=== PATIENT | female | born 1965 | race Caucasian/White ===

== ENCOUNTER 2023-11-20 09:18 | Emergency (ER) | payer OTHER, SELFPAY ==
[2023-11-20 09:26] VITALS: BP 153/83; PULSE 72; RESP 20; TEMP 36.7; O2SAT 98
[2023-11-20 09:33] VITALS: BP 153/83; PULSE 72; RESP 20; TEMP 36.7; O2SAT 98
--- NOTE | 2023-11-20 09:52 | ED.URI ---
HPI - URI/Sore Throat General Chief Complaint: Upper Respiratory Infection Stated Complaint: congestion/chest heavy/chills Time Seen by Provider: 11/20/23 09:55 Source: patient, RN notes reviewed and old records reviewed Mode of arrival: ambulatory Limitations: no limitations History of Present Illness HPI Narrative: 58-year-old female presents [facility] day history head and chest congestion. Patient reports she did have some fevers the 1st few days of illness. Patient reports that she does have some left ear pain and cough is bothersome, some productive phlegm which is green in color. Patient states she has not noticed any further fevers has had some chills intermittently Patient states she has been taking Mucinex for her symptoms and Tylenol. Patient reports that she felt better on Tuesday then worse again yesterday. MD elicited complaint: fever (Initial), cough, rhinorrhea, nasal congestion and sinus pain Onset (ago): day(s) (8) Pain scale (0-10): 5 Able to tolerate fluids by mouth: Yes Treatments prior to arrival: other (Mucinex and Tylenol) Related Data Home Medications Medication Instructions Recorded Confirmed glimepiride 2 mg tablet mg 11/20/23 pantoprazole 40 mg tablet,delayed mg PO 11/20/23 release ropinirole 2 mg tablet mg 11/20/23 sertraline 100 mg tablet mg 11/20/23 trazodone 50 mg tablet mg 11/20/23 triamterene 75 tablet 11/20/23 mg-hydrochlorothiazide 50 mg tablet Allergies Allergy/AdvReac Type Severity Reaction Status Date / Time promethazine Allergy Unknown Verified 12/28/11 13:30 Review of Systems Review of Systems: CONSTITUTIONAL: reports malaise, chills, sweats, or fever. EYES: Denies visual changes, redness, or discharge. ENT: Reports rhinorrhea, congestion, sinus pain, left otalgia and no sore throat. CARDIOVASCULAR: Denies chest pain, palpitations, or edema. RESPIRATORY: Reports cough.? Denies dyspnea. GASTROINTESTINAL: Denies abdominal pain, nausea, vomiting, diarrhea SKIN: Denies rash or itching. MUSCULOSKELETAL: Denies myalgia. NEUROLOGIC: Reports headache. All systems reviewed & are unremarkable except as noted in HPI and below PMFSH Past Medical History Medical History (Updated 02/25/24 @ 19:09 by Linda Aguilera NP) Anxiety and depression Diabetes GERD (gastroesophageal reflux disease) Hypertension Surgical History Surgical History (Updated 11/20/23 @ 10:26 by Linda Aguilera NP) Bariatric surgery status History of cholecystectomy Hx of tonsillectomy Previous section Family History Family History (Updated 04/23/16 @ 23:19 by DOCTOR UNKNOWN) Mother Family history of obesity Hypertension Cerebrovascular accident Family history of diabetes mellitus in first degree relative Family history of coronary artery disease Family history of heart disease in male family member before age 55 Father Family history of alcoholism Family history of lung disease Sibling Family history of alcoholism Social History Social History Smoking status: Never smoker Second hand tobacco smoke exposure: No Alcohol intake: never Comments At time of signature, agree with nursing past medical, surgical, social and family history. There is no relevant family history pertinent to the presenting complaint Exam Narrative: GENERAL: Well-appearing, well-nourished, and in no acute distress. HEAD: Normocephalic EYES: PERRLA, conjunctivae clear ENT: Nares clear, turbinates edematous and erythematous, clear- yellowish discharge, facial sinus pressure and headache. Mucous membranes moist. TM pearly gaming with dull light reflex bilaterally; no tragal tenderness. Oropharynx erythematous without lesions. Tonsils not present and throat without exudate, no drooling, no hoarseness, no trismus, uvula midline.post nasal drainage noted NECK: Supple. No lymphadenopathy CHEST: Clear to auscultation, breath sounds equal. No whe
== END 2023-11-20 10:18 | disposition home or self-care (01) ==
PROVIDERS: Emergency Provider Registered Nurse
DX: J01.40 Acute pansinusitis, unspecified (principal); R05.1 Acute cough; E11.9 Type 2 diabetes mellitus without complications; K21.9 Gastro-esophageal reflux disease without esophagitis; I10 Essential (primary) hypertension
CPT/HCPCS: 99213; G0463

== ENCOUNTER 2024-12-13 11:25 | Emergency (ER) | payer OTHER, SELFPAY ==
--- NOTE | ~2024-12-13 | XR_ITS ---
XR elbow RT min 3V Ordering provider: Oscar Elam MD History: . RT ELBOW PAIN,LROM,STIFFNESS,NKI,X1DAY . Comparison: None. FINDINGS: BONES: No acute fracture or dislocation. JOINT SPACES: Normal. Osteophyte Formation seen in the ulna. SOFT TISSUES: Unremarkable. No definite joint effusion. IMPRESSION: No acute osseous abnormality of the right elbow. Reviewed, dictated and finalized at location A.
[2024-12-13 11:26] VITALS: BP 164/92; PULSE 73; RESP 18; TEMP 36.8; O2SAT 98
--- NOTE | 2024-12-13 11:52 | ED_ITS ---
HPI - Extremity Injury (Upper) General Chief Complaint: Extremity Injury, Upper Stated Complaint: rt. elbow pain Time Seen by Provider: 12/13/24 11:27 Source: patient Mode of arrival: ambulatory Limitations: no limitations History of Present Illness HPI narrative: this is a 59-year-old female that has a right elbow pain radiating into her right wrist with no known injuries there is no numbness or tingling in her hands or fingers there is no redness no warmth is tender to touch and with movement and palpation otherwise no fever chills. complaint: injury to: right Onset (ago): day(s) Other Extremity Injury: Right: elbow ( Elbow pain no injuries) Other injuries: none Handedness: right Place: home Severity: moderate Severity scale (1-10): 5 Related Data Home Medications ?Medication ?Instructions ?Recorded ?Confirmed ?Last Taken ?Type glimepiride 2 mg tablet mg 11/20/23 Unknown History pantoprazole 40 mg tablet,delayed mg PO 11/20/23 Unknown History release ropinirole 2 mg tablet mg 11/20/23 Unknown History sertraline 100 mg tablet mg 11/20/23 Unknown History trazodone 50 mg tablet mg 11/20/23 Unknown History triamterene 75 tablet 11/20/23 Unknown History mg-hydrochlorothiazide 50 mg tablet Allergies Allergy/AdvReac Type Severity Reaction Status Date / Time promethazine Allergy Unknown Verified 04/13/24 09:22 Review of Systems Review of Systems: All systems reviewed & are unremarkable except as noted in HPI and below PMFSH Past Medical History Medical History Anxiety and depression GERD (gastroesophageal reflux disease) Diabetes Hypertension Surgical History Surgical History Bariatric surgery status History of cholecystectomy Hx of tonsillectomy Previous section Family History Family History Mother Family history of obesity Hypertension Cerebrovascular accident Family history of diabetes mellitus in first degree relative Family history of coronary artery disease Family history of heart disease in male family member before age 55 Father Family history of alcoholism Family history of lung disease Sibling Family history of alcoholism Social History Social History Smoking status: Never smoker Second hand tobacco smoke exposure: No Alcohol intake: never Exam Const: General: healthy appearing and no acute distress Nutritional Appearance: well nourished and obese Orientation/consciousness: patient oriented x3 Limitations: no limitations Eyes: Conjunctivae: conjunctivae normal Resp: Effort & Inspection: normal respiratory effort Auscultation: clear to auscultation bilaterally Cardio: Rate: regular rate Rhythm: regular rhythm Skin: General skin exam: normal color Rashes: no rashes Wounds: no wo unds Neuro: General: patient oriented x3, moves all extremities and no meningeal signs Extrem: Other: Pain in the right elbow with palpation, has a positive Phalen and Tinel test on the right Course Course Emergency Course: x-ray performed shows no acute fractures or abnormalities. Vital Signs Vital signs: Vital Signs Temperature 36.8 C 12/13/24 11:26 Pulse Rate 73 12/13/24 11:26 Respiratory Rate 18 12/13/24 11:26 Blood Pressure 164/92 H 12/13/24 11:26 Pulse Oximetry 98 12/13/24 11:26 Oxygen Delivery Room Air 12/13/24 11:26 Temperature 36.8 C 12/13/24 11:26 Pulse Rate 73 12/13/24 11:26 Respiratory Rate 18 12/13/24 11:26 Blood Pressure 164/92 H 12/13/24 11:26 Pulse Oximetry 98 12/13/24 11:26 Oxygen Delivery Room Air 12/13/24 11:26 Critical Care Time Critical Care Time Critical Care Time: No Discharge Plan Discharge Clinical Impression: Elbow tendonitis, Acute carpal tunnel syndrome of right wrist Patient Disposition: Home, Self-Care Condition: Stable Instructions: Antibiotic Form, Tendinitis (ED) Additional Instructions: advised take medication as prescribed and follow-up with primary care physician for further evaluation and treatment. Patient Language: Turkmen Prescriptions: New tramadol 50 mg tablet 50 mg PO Q6H PRN (Reason: pain) Qty: 14 0RF No Action trazodone 50 mg tablet sertraline 100 mg tablet glimepiride 2 mg tablet ropinirole 2 mg tablet pantoprazole 40 mg tablet,delayed release (DR/EC) PO triamterene-hydrochlorothiazid 75-50 mg tablet amoxicillin-pot clavulanate 875-125 mg tablet 1 tablet PO Q12H Qty: 20 0RF Rx Instructions: take with food eat Avtivia yogurt or take probiotics while on this medication fluconazole 150 mg tablet 150 mg PO DAILY Qty: 2 0RF Rx Instructions: take at onset of symptoms and may repeat in 72 hours if needed Follow-up/Referrals: UNKNOWN,DOCTOR [Primary Care Provider] - Time of Disposition: 11:57
--- OUTSIDE RECORDS SUMMARY | 2024-12-13 12:22 | XMS_ITS | CONTINUITY OF CARE DOCUMENT ---
Author Name tori myeshajuanjose Address Unknown Organization [facility] Address [address] [place] [address] Phone [phone] Care Team Providers Care Stock Supervisor Name Role Phone John Ly MD Unavailable [phone] KAISER PHIPPS MD Unavailable KAISER PHIPPS MD Unavailable [phone] PROBLEMS Condition Status Date Provider Notes LEG OR ARM PAIN active Elizabethmaria c Desouza CHEST PAIN-TYPE TO BE DETERMINED active Jake Desouza HTN ESSENTIAL active John Ly MD OBESITY active John Ly MD ENCOUNTERS Date Type Provider Location Encounter Diag nosis - In-person encounter Office Visit John Ly MD [facility] Office HTN ESSENTIALOBESITY VITAL SIGNS Date Observation Value Provider blood pressure, diastolic 99 mm[Hg] Denise Traore MA blood pressure, systolic 141 mm[Hg] Jameel Traore MA pulse rate 96 /min Amie Traore MA oxygen saturation, oximetry 96 % Amie Traore MA respiratory rate E&M 20 /min Amie Traore MA weight E&M 276 [lb_av] Amie Traore MA RESULTS Date Observation Value Provider Reference Range Interpretation Location thyroid stimulating hormone, serum 3.22 u[IU]/mL Manpreet Molina thyroxine, serum, free 2.0 ng/dL Manpreet Molina thyroxine, serum, total 7.2 ug/dL [facility] triiodothyronine resin uptake 28 % [facility] blood glucose, fasting 151 mg/dL [facility] creatinine, serum 0.7 mg/dL [facility] urea nitrogen, blood 14 mg/dL [facility] carbon dioxide, serum, total 23 mmol/L [facility] chloride, serum 100 mmol/L [facility] potassium, serum 3.8 mmol/L [facility] sodium, serum 138 mmol/L [facility] calcium, serum 9.8 mg/dL [facility] 8[facility] Normal carbon dioxide, venous blood 23 mmol/L [facility] 21-33 Normal chloride, serum 100 mmol/L [facility] 98-110 Normal potassium, serum 3.8 mmol/L [facility] 3.5-5.3 Normal sodium, serum 138 mmol/L [facility] 135-146 Normal urea nitrogen/creatinine ratio, serum NOT APPLICABLE (calc) [facility] 6-22 Estimated Glomerular Filtration Rate (calc) >60 mL/min/1.73m2 [facility] > OR = 60 Normal creatinine, serum 0.74 mg/dL [facility] 0.59-1.07 Normal urea nitrogen, blood 14 mg/dL [facility] 7-25 Normal blood glucose, random 151 mg/dL [facility] 65-99 High thyroid stimulating hormone, serum 3.22 u[IU]/mL [facility] Normal free thyroxine index 2.0 [facility] 1.4-3.8 Normal thyroxine, serum, total 7.2 ug/dL [facility] 4.5-12.5 Normal triiodothyronine resin uptake 28 % [facility] 22-35 Normal HISTORY OF MEDICATION USE Medication Status Instructions Dates Provider Indications Com ments JCARLOS-KASI M20 20 MEQ ORAL TABLET EXTENDED RELEASE active twice daily Amie Traore MA TRIAMTERENE-HC TZ 75-50 MG ORAL TABLET active ONE TAB. DAILY Lorna Ness PROTONIX 40 MG ORAL TABLET DELAYED RELEASE active tqake one tab.once daily Lorna Ness WELLBUTRIN 100 MG ORAL TABLET active ONE TAB. twice daily Lorna Ness VYTORIN 10-20 MG ORAL TABLET completed ONE TAB. AT BEDTIME - 2 Lorna Ness MAXZIDE 75-50 MG ORAL TABLET active ONE TAB. DAILY Elizabeth Stahlschmidt ZOLOFT 100 MG ORAL TABLET active ONE TAB. twice daily Lorna Ness SOCIAL HISTORY Date Observation Value Provider social history reviewed E&M reviewed Ashwin Leblanc social history E&M Marital Statu s: E thnicity: John Ly MD physical exercise, f requency, days per week no [facility] caffeine use, averag e drinks per day yes [facility] alcohol use, average drinks per day none [facility] smoking status Non-smoker [facility] MENTAL STATUS Date Observation Value Provider assessment of judgme nt and insight E&M Alert and oriented to time, place and person. Mood and affect are normal. John Ly MD INSURANCE PROVIDERS Payer name Policy type / Coverage type [facility] libertarian [place] [facility] [place]PPO Other [id number] TREATMENT PLAN Date Name Performer FU: H er updated medication list for this problem includes: Maxzide 75-50 Mg Tabs (Triamterene-hctz) ..... One tab. daily Triamterene-hctz 75-50 Mg Tabs (Triamterene-hctz) ..... One tab. daily Orders: B ASIC METABOLIC PANEL W/EGFR (81516) T HYROID PANEL WITH TSH, 3RD GENERATION (7444) BP today: 141/99 Ashwin Leblanc FU: O rders: E KG (CPT-99874) BP today: 141/99 Prior BP: / () N uclear Stress Findings: Chest heaviness. No EKG changes diagnostic for ischemia. Small reversible inferior wall defect. Normal LVSF. LVEF 60%. [facility] (01/27/2006) E chocardiogram: Normal LV diastolic and systolic function. Normal LV size with normal thickness. Normal RV size and systolic function. Normal atrial size. Structurally normal cardiac valves. LVEF 60%. Unable to accurately asess pulmonary artery systolic prsesure. [employer] (12/06/2008) Ashwin Leblanc Date Name THYROID PANEL WITH T SH, 3RD GENERATION BASIC METABOLIC PANE L W/EGFR
--- OUTSIDE RECORDS SUMMARY | 2024-12-13 12:22 | XMS_ITS | Patient Health Record ---
Author Organization [facility] Mirta platt Billing Info Address [address] [place] [address] [place] [address] Care Team Providers Care Turkey Roll Maker Name Role Phone ANA ARENAS Unavailable [phone] NIDIA SNYDER Unavailable [phone] Allergies Allergen (clinical drug ingredient) Drug/Non Drug Allergy documented on EMR Reaction Allergy Type Onset Date Status promethazine Phenergan unknown Drug Allergy Acti ve Results Component Value Reference Range Notes XRAY-KNEE, RIGHT; 3 VIEWS (7 1261) IH Reviewed date:09/06/2024 09:42:03 AM Interpretation: Performing Lab: Notes/Report: Reason For Referral No Information Medications Medication SIG (Take, Route, Fr equency, Duration) Notes Start Date End Date Status Ropinirole HCl Activ e Trazodone HCl Active Sertraline HCl Activ e Pantoprazole Sodium Active Maxzide Active Social History Tobacco Use: Social History Observation Description Date Details (start date - stop date) Never Smoker NA - NA Tobacco Status: Question Answer Notes Patient is a never smoker Vital Signs Heart Rate 69 /min 09/06/2024 Blood pressure diastolic 111 mm Hg 09/06/2024 Height 64 in 09/06/2024 Blood pressure systolic 162 mm Hg 09/06/2024 Weight 270 lbs 09/06/2024 BMI 46.34 kg/m2 09/06/2024 Encounters Encounter Location Date Provider Diagnosis [id number] [address] [place] [address] 09/06/2024 ANA ARENAS Primary osteoarthrit is of right knee M17.11 Assessments Encounter Date Diagnosis (ICD Code) Assessment Notes Treatment Notes Treatment Clinical Notes Section Notes 09/06/2024 Primary osteoarthritis of right knee (ICD-10 - M17.11) I reviewed her imaging with her. She has significant osteoarthritis of the knee, mostly in the lateral and patellofemoral compartments. We discussed the progression of the disease and its natural history. We discussed a range of management options including oral NSAID medication, injections, physical therapy, activity modification and weight loss, as well as the possibility of surgical management if conservative measures fail to improve symptoms. The patient opted to proceed with injections. We performed an injection today as described below. I encouraged her to work on weight loss as well and to speak to her primary care doctor about getting her blood sugar under better control. Ultimately I think she would benefit most from a knee replacement, but she needs to be further medically optimized prior to any elective surgery. The patient will follow-up again with me in 3 months for reevaluation. If there are any other problems, they were advised to return to clinic sooner. Plan Of Treatment No Information Insurance Providers Payer Name Payer Address Payer Phone Subscriber Number Group Number Insured Name Patient Relationship to Insured Coverage Start Date Coverage End Date [facility] [address] [place], [place] [id number] [phone] [id number] Belkis Chan Self - patient is the insured Medications Administered Medication Instructions Date of Administration Dosage Notes Candace 09/06/2024 1 mL [facility][NOTE 3]: [id number] 12-21 Medical (General) History Medical History History ICD Code type II diabetes Hypertension Surgical History Surgery Date(Month/Year) C section tonsillectomy gall bladder surgery
--- OUTSIDE RECORDS SUMMARY | 2024-12-13 12:22 | XMS_ITS ---
Author Name Interface, [id number] lity Address [place] [address] Organization [facility] Address [place] breakthroughs[place] [address] Care Team Providers Care Databases Software Consultant Name Role Phone Kuldip Pereira Unavailable Unavailable Allergies and Adverse Reactions Medication/Group Name Reaction Severity Date metformin 03/05/2024 glimepiride 03/05/2024 promethazine 03/05/2024 Phenergan 03/05/2024 Plan Date Type Value 04/19/2025 APPOINTMENT [facility]OSSOM DORMAN 11/16 , LAB TARUN, 5M 04/16/2025 APPOINTMENT [facility] DORMAN 11/16 LA B, 5M 12/06/2024 APPOINTMENT [facility] DORMAN 8/19 ,LAB TARUN,7MON 12/03/2024 APPOINTMENT [facility] DORMAN 8/19 ,LAB TARUN,7MON 11/26/2024 APPOINTMENT BLOSSOM Tee/19 ,LAB TARUN,7MON 11/22/2024 APPOINTMENT [facility] DORMAN 8/19 ,LAB TARUN,7MON 11/19/2024 APPOINTMENT [facility] DORMAN 8/19 ,LAB TARUN,7MON 11/16/2024 APPOINTMENT [facility] DORMAN 8/19 ,LAB TARUN,7MON 11/06/2024 APPOINTMENT [facility] DORMAN 8/19 ,LAB TARUN,7MON 09/17/2024 APPOINTMENT [facility] DORMAN LABS 05/07/2024 APPOINTMENT [facility] DORMAN 03/05/24 05/07/2024 APPOINTMENT [facility] DORMAN 6/10 , LAB, 9WK 04/30/2024 APPOINTMENT [facility] DORMAN 6/10 , LAB, 9WK 03/22/2024 APPOINTMENT BLOSSOM D50.8 03/05/2024 APPOINTMENT BLOSSOM LANDSCAPE PHOTOGRAPHER ANEMIA 03/05/2024 APPOINTMENT BLOSSOM LANDSCAPE PHOTOGRAPHER ANEMIA 04/30/2024 LABORDER CBC w/auto diff with reflex 04/30/2024 LABORDER Iron, TIBC, Ferr itin panel 09/17/2024 LABORDER Iron, TIBC, Ferr itin panel 09/17/2024 LABORDER CBC w/auto diff with reflex 11/06/2024 LABORDER CBC w/auto diff with reflex 11/06/2024 LABORDER Zinc panel 11/06/2024 LABORDER Vitamin E panel 11/06/2024 LABORDER Vitamin D monito ring panel 11/06/2024 LABORDER Copper panel 11/06/2024 LABORDER Vitamin B6 panel 11/06/2024 LABORDER Vitamin C panel 11/06/2024 LABORDER Iron, TIBC, Ferr itin panel 11/06/2024 LABORDER Vitamin B12 and Folate panel 11/06/2024 LABORDER Vitamin K panel 11/06/2024 LABORDER Vitamin B1 panel 11/06/2024 LABORDER Vitamin A (Retin ol) panel 04/16/2025 LABORDER Vitamin C panel 04/16/2025 LABORDER CMP 04/16/2025 LABORDER Vitamin D monito ring panel 04/16/2025 LABORDER Iron, TIBC, Ferr itin panel 04/16/2025 LABORDER Vitamin B12 and Folate panel 04/16/2025 LABORDER CBC w/auto diff with reflex Reason for Visit BLOSSOM DORMAN 05/14 ,LAB TARUN,7MON Encounters Date Name 03/05/2024 Iron deficiency anem ia (disorder) Immunizations Date Name Route Dose Instructions Refusal Reason Stat us Flu vaccine - Adult Patient declined/rejected Not Administered Covid-19 vaccine (Pfizer) Patient declined/rejected Not Administered Diagnostic Results Date Type Test Units Lower Limit Upper Limit Result Flag Comments Status Ordered By Specimen Source Lab Address 04/30 CBC w/aut o diff with refle x WBC 10^3/u L 4.8 10.8 6.4 FINAL [facility] Whole Blood [facility].[address] [facility] [place] [address] CLIA# [id number] 67 04/30 CBC w/aut o diff with refle x RBC 10^6/u L 4.2 5.4 4.86 FINAL [facility] Whole Blood [facility].[address] [facility] [place] [facility] [address] CLIA# [id number] 67 04/30 CBC w/aut o diff with refle x HGB g/dL 12.0 16.0 13.0 FINAL [facility] Whole Blood [facility].[address] [facility] [place] [address] CLIA# [id number] 67 04/30 CBC w/aut o diff with refle x HCT % 37.0 47.0 41.6 FINAL [facility] Whole Blood [facility].[address] [facility] [place] [address] CLIA# [id number] 67 04/30 CBC w/aut o diff with refle x MCV fL 81.0 99.0 85.6 FINAL [facility] Blood [facility].[address] [facility] [address] CLIA# [id number] 67 04/30 CBC w/aut o diff with refle x MCH pg 27.0 31.0 26.7 Low FINAL [facility] Whole Blood [facility].[address] [facility] [address] CLIA# [id number] 67 04/30 CBC w/aut o diff with refle x MCHC g/dL 33.0 37.0 31.3 Low FINAL [facility] Whole Blood [facility].[address] [facility] [address] CLIA# [id number] 67 04/30 CBC w/aut o diff with refle x PLT 10^3/u L 130.0 400.0 217 FINAL [facility] Whole Blood [facility].[address] [facility] [place] [address] CLIA# [id number] 67 04/30 CBC w/aut o diff with refle x MPV fL 9.4 12.3 10.9 FINAL [facility] Whole Blood [facility].[address] [facility] [place] [address] CLIA# [id number] 67 04/30 CBC w/aut o diff with refle x RDW % 10.5 14.5 18.4 High FINAL [facility] Whole Blood [facility].[address] [facility] [address] CLIA# [id number] 67 04/30 CBC w/aut o diff with refle x Paul % % 40.0 77.0 69.8 FINAL [facility] Whole Blood [facility].[address] [facility] [place] [address] CLIA# [id number] 67 04/30 CBC w/aut o diff with refle x Paul # (ANC) 10^3/u L 1.5 6.5 4.48 FINAL [facility] Whole Blood [facility].[address] [facility] [place] [place] [address] CLIA# [id number] 67 04/30 CBC w/aut o diff with refle x IG % % 0.0 0.5 0.3 FINAL [facility] Whole Blood [facility].[address] [facility] [place] [address] CLIA# [id number] 67 04/30 CBC w/aut o diff with refle x IG # 10^3/u L 0.0 0.03 0.02 FINAL [facility] Whole Blood [facility].[address] [facility] [place] [address] CLIA# [id number] 67 04/30 CBC w/aut o diff with refle x LY % % 15.0 41.0 20.6 FINAL [facility] Whole Blood [facility].[address] [facility] [place] [address] CLIA# [id number] 67 04/30 CBC w/aut o diff with refle x LY # 10^3/u L 1.2 3.4 1.32 FINAL [facility] Whole Blood [facility].5 [address] [facility] [address] CLIA# [id number] 67 04/30 CBC w/aut o diff with refle x MO % % 3.0 11.0 6.9 FINAL [facility] Whole Blood [facility].[address] [facility] [place] [address] CLIA# [id number] 67 04/30 CBC w/aut o diff with refle x MO # 10^3/u L 0.0 1.0 0.44 FINAL [facility] Whole Blood [facility].[address] [facility] [place] [address] CLIA# [id number] 67 04/30 CBC w/aut o diff with refle x EO % % 0.0 3.0 1.9 FINAL [facility] Whole Blood [facility].[address] [facility] [place] [address] CLIA# [id number] 67 04/30 CBC w/aut o diff with refle x EO # 10^3/u L 0.0 0.3 0.12 FINAL [facility] Whole Blood [facility].[address] [facility] [address] CLIA# [id number] 67 04/30 CBC w/aut o diff with refle x BA % % 0.0 1.0 0.5 FINAL [facility] Whole Blood [facility].[address] [facility] [address] CLIA# [id number] 67 04/30 CBC w/aut o diff with refle x BA # 10^3/u L 0.0 0.2 0.03 FINAL [facility] Whole Blood [facility].[address] [facility] [place] [address] CLIA# [id number] 67 04/30 CBC w/aut o diff with refle x NRBC, % % 0.0 0.2 0.0 FINAL [facility] Whole Blood [facility].[address] [facility] [address] CLIA# [id number] 67 04/30 CBC w/aut o diff with refle x NRBC, absol lower brule, x 10^3/ uL 10^3/u L 0.0 0.01 0.00 FINAL [facility] Whole Blood [facility].[address] [address] CLIA# [id number] 67 04/30 Monica tin panel Monica tin ng/mL 10.0 291.0 87.2 FINAL [facility].[address] [address] CLIA# [id number] 67 04/30 TIBC and perce nt sat w/ iron panel Iron ug/dL 50.0 170.0 52.0 FINAL [facility].[address] [address] CLIA# [id number] 67 04/30 TIBC and perce nt sat w/ iron panel TIBC ug/dL 250.0 450.0 329.2 FINAL [facility].[address] [address] CLIA# [id number] 67 04/30 TIBC and perce nt sat w/ iron panel Iron, % satur ation % 15.0 50.0 16 FINAL [facility].[address] [address] CLIA# [id number] 67 09/17 CBC w/aut o diff with refle x WBC 10^3/u L 4.8 10.8 5.4 [facility].[address] [address] CLIA# [id number] 67 09/17 CBC w/aut o diff with refle x RBC 10^6/u L 4.2 5.4 4.33 [facility]AL [facility].[address] [address] CLIA# [id number] 67 09/17 CBC w/aut o diff with refle x HGB g/dL 12.0 16.0 12.6 [facility]AL [facility].[address] [address] CLIA# [id number] 67 09/17 CBC w/aut o diff with refle x HCT % 37.0 47.0 38.9 FINAL [facility] Whole Blood [facility].[address] [address] CLIA# [id number] 67 09/17 CBC w/aut o diff with refle x MCV fL 81.0 99.0 89.8 FINAL [facility] Whole Blood [facility].[address] [address] CLIA# [id number] 67 09/17 CBC w/aut o diff with refle x MCH pg 27.0 31.0 29.1 FINAL [facility] Whole Blood [facility].[address] [address] CLIA# [id number] 67 09/17 CBC w/aut o diff with refle x MCHC g/dL 33.0 37.0 32.4 Low FINAL [facility] Whole Blood [facility].[address] [address] CLIA# [id number] 67 09/17 CBC w/aut o diff with refle x PLT 10^3/u L 130.0 400.0 180 [facility].[address] [address] CLIA# [id number] 67 09/17 CBC w/aut o diff with refle x MPV fL 9.4 12.3 11.3 FINAL [facility] Whole Blood [facility].[address] [address] CLIA# [id number] 67 09/17 CBC w/aut o diff with refle x RDW % 10.5 14.5 13.7 FINAL [facility] Whole Blood [facility].[address] [address] CLIA# [id number] 67 09/17 CBC w/aut o diff with refle x Paul % % 40.0 77.0 64.9 FINAL [facility] Whole Blood [facility].[address] [address] CLIA# [id number] 67 09/17 CBC w/aut o diff with refle x Paul # (ANC) 10^3/u L 1.5 6.5 3.48 FINAL [facility] Whole Blood [facility].[address] [address] CLIA# [id number] 67 09/17 CBC w/aut o diff with refle x IG % % 0.0 0.5 0.7 High FINAL [facility] Whole Blood [facility].[address] [address] CLIA# [id number] 67 09/17 CBC w/aut o diff with refle x IG # 10^3/u L 0.0 0.03 0.04 High FINAL [facility] Whole Blood [facility].[address] [address] CLIA# [id number] 67 09/17 CBC w/aut o diff with refle x LY % % 15.0 41.0 25.4 FINAL [facility] Whole Blood [facility].[address] [address] CLIA# [id number] 67 09/17 CBC w/aut o diff with refle x LY # 10^3/u L 1.2 3.4 1.36 FINAL [facility] Whole Blood [facility].[address] [address] CLIA# [id number] 67 09/17 CBC w/aut o diff with refle x MO % % 3.0 11.0 7.3 FINAL [facility] Whole Blood [facility].[address] [address] CLIA# [id number] 67 09/17 CBC w/aut o diff with refle x MO # 10^3/u L 0.0 1.0 0.39 FINAL [facility] Whole Blood [facility].[address] [address] CLIA# [id number] 67 09/17 CBC w/aut o diff with refle x EO % % 0.0 3.0 1.5 FINAL [facility] Whole Blood [facility].[address] [address] CLIA# [id number] 67 09/17 CBC w/aut o diff with refle x EO # 10^3/u L 0.0 0.3 0.08 FINAL [facility] Whole Blood [facility].[address] [address] CLIA# [id number] 67 09/17 CBC w/aut o diff with refle x BA % % 0.0 1.0 0.2 FINAL [facility] Whole Blood [facility].[address] [address] CLIA# [id number] 67 09/17 CBC w/aut o diff with refle x BA # 10^3/u L 0.0 0.2 0.01 FINAL [facility] Whole Blood [facility].[address] [address] CLIA# [id number] 67 09/17 CBC w/aut o diff with refle x NRBC, % % 0.0 0.2 0.0 FINAL [facility] Whole Blood [facility].[address] [address] CLIA# [id number] 67 09/17 CBC w/aut o diff with refle x NRBC, absol lower brule, x 10^3/ uL 10^3/u L 0.0 0.01 0.00 FINAL [facility] Whole Blood [facility].[address] [address] CLIA# [id number] 67 09/17 TIBC and perce nt sat w/ iron panel Iron ug/dL 50.0 170.0 41.5 Low FINAL [facility] Serum [facility].[address] [address] CLIA# [id number] 67 09/17 TIBC and perce nt sat w/ iron panel TIBC ug/dL 250.0 450.0 297.6 FINAL [facility] Serum [facility].[address] [address] CLIA# [id number] 67 09/17 TIBC and perce nt sat w/ iron panel Iron, % satur ation % 15.0 50.0 14 Low FINAL [facility].[address] [address] CLIA# [id number] 67 09/17 Monica tin panel Monica tin ng/mL 10.0 291.0 43.8 FINAL [facility].[address] [address] CLIA# [id number] 67 11/06 Vitam in B1 panel Vitam in B1, nmol/ L nmol/L 78.0 185.0 82 (Note)Vit alcaraz supplemen tation within 24 hours prior to blooddraw may affect the accuracy of the results.T his test was developed and its analytica l performan cecharact eristics have been determine d by [employer]. It has not been cleared or approved by FDA.This assay has been validated pursuant to the [facility] ations and is used for clinical purposes. FINAL [facility] Whole Blood-Lig ht Protected [facility].[address] [address] [address] [address] 11/06 Vitam in A (Reti nol) panel Vitam in A, ug/dL mcg/dL 38.0 98.0 69 (Note)C aby Chem Vol. 34.No.8. [id number] 28. 1998Vitam in supplemen tation within 24 hours prior to blooddraw may affect the accuracy of results.T his test was developed and its analytica l performan cecharact eristics have been determine d by [employer]. It has not been cleared or approved by theFDA. This assay has been validated pursuant to the CLIAregul ations and is used for clinical purposes. FINAL [facility] Serum [facility].2 [address] [address] [address] [address] 11/06 Vitam in E panel Alpha -toco phero l (Vit E) mg/L 5.7 19.9 13.3 Levels of alpha-edgar opherol <5 mg/L are consisten t with Vitamin E deficienc y inadults. FINAL [facility] Serum [facility].[address] [address] [address] [address] 11/06 Vitam in E panel Beta- gamma tocop herol mg/L 1.6 (Note)Vit alcaraz supplemen tation within 24 hours prior to blooddraw may affect the accuracy of results.T his test was developed and its analytica l performan cecharact eristics have been determine d by [employer]. It has not been cleared or approved by theA. This assay has been validated pursuant to the [facility] and is used for clinical purposes. FINAL [facility] Serum [facility].2 [address] [address] [address] [address] 11/06 CBC w/aut o diff with refle x WBC 10^3/u L 4.8 10.8 6.4 [facility]AL [facility] [place].[address] [address] CLIA# [id number] 67 11/06 CBC w/aut o diff with refle x RBC 10^6/u L 4.2 5.4 4.67 [facility]AL [facility] [place].[address] [address] CLIA# [id number] 67 11/06 CBC w/aut o diff with refle x HGB g/dL 12.0 16.0 13.7 FINAL [facility] Whole Blood [facility].[address] [address] CLIA# [id number] 67 11/06 CBC w/aut o diff with refle x HCT % 37.0 47.0 41.6 FINAL [facility] Whole Blood [facility].[address] [address] CLIA# [id number] 67 11/06 CBC w/aut o diff with refle x MCV fL 81.0 99.0 89.1 FINAL [facility] Whole Blood [facility].[address] [address] CLIA# [id number] 67 11/06 CBC w/aut o diff with refle x MCH pg 27.0 31.0 29.3 FINAL [facility] Whole Blood [facility].[address] [address] CLIA# [id number] 67 11/06 CBC w/aut o diff with refle x MCHC g/dL 33.0 37.0 32.9 Low FINAL [facility] Whole Blood [facility].[address] [address] CLIA# [id number] 67 11/06 CBC w/aut o diff with refle x PLT 10^3/u L 130.0 400.0 237 FINAL [facility] Whole Blood [facility].[address] [address] CLIA# [id number] 67 11/06 CBC w/aut o diff with refle x MPV fL 9.4 12.3 11.3 FINAL [facility] Whole Blood [facility].[address] [address] CLIA# [id number] 67 11/06 CBC w/aut o diff with refle x RDW % 10.5 14.5 14.6 High FINAL [facility] Whole Blood [facility].[address] [address] CLIA# [id number] 67 11/06 CBC w/aut o diff with refle x Paul % % 40.0 77.0 68.6 FINAL [facility] Whole Blood [facility].[address] [address] CLIA# [id number] 67 11/06 CBC w/aut o diff with refle x Paul # (ANC) 10^3/u L 1.5 6.5 4.40 FINAL [facility] Whole Blood [facility].[address] [address] CLIA# [id number] 67 11/06 CBC w/aut o diff with refle x IG % % 0.0 0.5 0.3 FINAL [facility] Whole Blood [facility].[address] [address] CLIA# [id number] 67 11/06 CBC w/aut o diff with refle x IG # 10^3/u L 0.0 0.03 0.02 FINAL [facility] Whole Blood [facility].[address] [address] CLIA# [id number] 67 11/06 CBC w/aut o diff with refle x LY % % 15.0 41.0 22.7 FINAL [facility] Whole Blood [facility].[address] [address] CLIA# [id number] 67 11/06 CBC w/aut o diff with refle x LY # 10^3/u L 1.2 3.4 1.46 FINAL [facility] Whole Blood [facility].[address] [address] CLIA# [id number] 67 11/06 CBC w/aut o diff with refle x MO % % 3.0 11.0 6.7 FINAL [facility] Whole Blood [facility].[address] [address] CLIA# [id number] 67 11/06 CBC w/aut o diff with refle x MO # 10^3/u L 0.0 1.0 0.43 FINAL [facility] Whole Blood [facility].[address] [address] CLIA# [id number] 67 11/06 CBC w/aut o diff with refle x EO % % 0.0 3.0 1.4 FINAL [facility] Whole Blood [facility].[address] [address] CLIA# [id number] 67 11/06 CBC w/aut o diff with refle x EO # 10^3/u L 0.0 0.3 0.09 FINAL [facility] Whole Blood [facility].[address] [address] CLIA# [id number] 67 11/06 CBC w/aut o diff with refle x BA % % 0.0 1.0 0.3 FINAL [facility] Whole Blood [facility].[address] [address] CLIA# [id number] 67 11/06 CBC w/aut o diff with refle x BA # 10^3/u L 0.0 0.2 0.02 FINAL [facility] Whole Blood [facility].[address] [address] CLIA# [id number] 67 11/06 CBC w/aut o diff with refle x NRBC, % % 0.0 0.2 0.0 FINAL [facility] Whole Blood [facility].[address] [address] CLIA# [id number] 67 11/06 CBC w/aut o diff with refle x NRBC, absol lower brule, x 10^3/ uL 10^3/u L 0.0 0.01 0.00 FINAL [facility] Whole Blood [facility].[address] [address] CLIA# [id number] 67 11/06 TIBC and perce nt sat w/ iron panel Iron ug/dL 50.0 170.0 62.9 FINAL [facility] Serum [facility].[address] [address] CLIA# [id number] 67 11/06 TIBC and perce nt sat w/ iron panel TIBC ug/dL 250.0 450.0 382.5 FINAL [facility].[address] [address] CLIA# [id number] 67 11/06 TIBC and perce nt sat w/ iron panel Iron, % satur ation % 15.0 50.0 16 FINAL [facility].[address] [address] CLIA# [id number] 67 11/06 Folat e panel Folat e, serum ng/mL 8.6 58.9 4.09 Low FINAL [facility].[address] [address] CLIA# [id number] 67 11/06 Monica tin panel Monica tin ng/mL 10.0 291.0 42.1 FINAL [facility].[address] [address] CLIA# [id number] 11/06 Zinc panel Zinc mcg/dL 60.0 130.0 67 (Note)Thi s test was developed and its analytica l performan cecharact eristics have been determine d by [employer].It has not been cleared or approved by the FDA. Thisassay has been validated pursuant to the CLIA regulatio nsand is used for clinical purposes. FINAL [facility] Plasma [facility].[address] [address] 11/06 Coppe r panel Coppe r, serum mcg/dL 70.0 175.0 151 (Note)Thi s test was developed and its analytica l performan cecharact eristics have been determine d by [employer].It has not been cleared or approved by the FDA. This assayhas been validated pursuant to the CLIA regulatio ns and isused for clinical purposes. FINAL [facility] Plasma [facility].[address] [address].[facility] [address] 11/06 Vitam in K panel Vitam in K1 pg/mL 130.0 1500.0 728 (Note)Thi s test was developed and its analytica l performan cecharact eristics have been determine d by [employer] [place]. It hasnot been cleared or approved by the U.S. Food and DrugAdmin istration . This assay has been validated pursuantt o the CLIA regulatio ns and is used for clinicalp urposes.T est Performed at:[employer] /[address], [place] 8 Taqueria Early MD, PhD FINAL [facility] Plasma-Li ght Protected 11/06 Vitam in C panel Vitam in C, serum mg/dL 0.3 2.7 <0.1 Low (Note)Thi s test was developed and its analytica lperforma nce character istics have been determine dby [employer] [place], [place].It has not been cleared or approved by the FDA. Thisassay has been validated pursuant to the [facility] and is used for clinical purposes. Test Performed at:[facility] | [facility] [address] [facility], [place] 8 Taqueria Early MD, PhD FINAL [facility] Serum 11/06 Vitam in B12 panel Vitam in B12 pg/mL 211.0 911.0 288 FINAL [place] Serum [facility] [place].[address] [address] CLIA# [id number] 67 11/06 Vitam in B6 panel Vitam in B6, ng/mL ng/mL 2.1 21.7 7.1 (Note)Vit alcaraz supplemen tation within 24 hours prior to blooddraw may affect the accuracy of results.T his test was developed and its analytica l performan cecharact eristics have been determine d by [employer]. It has not been cleared or approved by theFDA. This assay has been validated pursuant to the [facility] and is used for clinical purposes. FINAL [facility] Plasma [facility] [address] [address] [address] 11/06 Vitam in D monit ori panel Vitam in D, 25-hy droxy ng/mL 30.0 100.0 19 Low (Note)Vit alcaraz D Status Adult 25-OH Vitamin D-------- --------- --------- --------- --------- Deficienc y <20 ng/mLInsu fficiency 20 - 29 ng/mLOpti mal >or = 30 ng/mLFor 25-OH Vitamin D testing on patients onD2-supp lementati on and patients for whom quantitat ion of D2and D3 fractions is required, the [employer] reD(TM) 25-OH VIT D, (D2,D3),L C/MS/MS is recommend ed: order code [id number] (patients >2yrs). FINAL [facility] Serum [facility].2 [address] [address] [address] [address] Medications Date Name Route Dose Frequency Instructions Start Date End Date Status Cyanocobalamin Sublingual one tablet sublingual once daily active Multivitamins Oral Tablet Bariatric-two chewables by mouth once daily active Triamterene-Hyd rochlorothiazid e Oral Capsule 37.5 mg-25 mg two tablets by mouth once daily active Pantoprazole (Sodium) Oral Delayed Release one tablet by mouth 1-2 times daily active Ferrous Sulfate Oral ER Tab one tablet by mouth once daily active Sertraline Oral two tablets by mouth once daily active Trazodone Oral 1-3 tablets by mouth once nightly for sleep active Ropinirole Oral one tablet by mouth BID active 2024 folic acid 1 MG Oral Tablet orally 1.0 tablet 2 times per week 2024 active 2023 Solu-Cortef intravenously 100.0 mg Re-initiate treatment only upon physician approval. 2023 active 2023 famotidine 10 MG/ML Injectable Solution intravenously 20.0 mg Re-initiate treatment only upon physician approval. 2023 active 2023 Solu-Medrol intravenously 125.0 mg Re-initiate treatment only upon physician approval. 2023 active 2023 1 ML epinephrine 1 MG/ML Injection intramuscularly 0.3 mg once Re-initiate treatment only upon physician approval. 2023 active Problems Diagnosis Status Date of Diagnosi s Nutritional anemia (disorder) Active Serum vitamin B12 low Active Depressive disorder (disorder) Active Type 2 diabetes Active Restless legs (disorder) Active Unsteady when walking (finding) Active PATRICIA Active HTN Active History of gastric bypass Active Iron deficiency anemia (disorder) Active Vital Signs Date Type Value 03/05/2024 Pain Scale 6.00 03/22/2024 Body Temperature 97.70 03/22/2024 Weight 281.00 03/22/2024 BSA 2.26 03/22/2024 BMI 48.23 03/22/2024 Height 64.00 03/22/2024 Heart Beat 70.00 03/22/2024 Respiratory Rate 20.00 03/22/2024 Oxygen Saturation 98.00 03/22/2024 Intravascular Systolic 154 03/22/2024 Intravascular Diastolic 89 03/30/2024 Height 64.00 03/30/2024 Pain Scale 0.00 05/07/2024 BSA 2.23 05/07/2024 BMI 46.69 05/07/2024 Height 64.00 05/07/2024 Pain Scale 0.00 05/07/2024 Weight 272.00 11/16/2024 Height 64.00 11/16/2024 Pain Scale 0.00 Notes Section * HemOnc Consult {[facility]} - [facility] [address] [place] [address] P: F: PATIENT: ISHAN PHOENIX : 1965 Date of Service: 03/05/2024 Reason for Clinic Visit/Chief Complaint: Iron deficiency anemia History of Present Illness: She is a 58-year-old female??presents for iron deficiency anemia.?? She is taking iron supplements every day. She had prior??gastric bypass surgery, and has history of type 2 diabetes mellitus.?? She denies melena, abdominal pain or bleeding episodes. Review of Systems: CONSTITUTIONAL:?? Denies fever,?? night sweats or weight loss. +Fatigue HEMATOLOGIC: ??No bruising or bleeding from any site.?? HEENT: ??No visual acuity problems or double vision. ??No history of sore throat, dry mouth or dysphagia. ?? LUNGS: ??No cough, dyspnea, or wheezing. ?? CARDIAC: ??No chest pain or palpitations. GASTROINTESTINAL: ??No abdominal pain, nausea, dyspepsia, constipation or diarrhea. ??No hematemesis, hematochezia or melena. GENITOURINARY: ??No hematuria, dysuria, incontinence or pelvic pain. ?? NEUROLOGIC: ??No headaches, dizziness, imbalance, gait disturbance, or decreased sensation. MUSCULOSKELETAL: ??No muscle or joint pain or joint swelling. ?? SKIN: ??No skin rashes, itching or discoloration. ?? NEUROPSYCHIATRIC: ??No anxiety or depression. ?? Past Medical History: Hypertension Depression Restrictive sleep apnea Type 2 diabetes mellitus Low vitamin B12 level Past Surgical History: Gastric Bypass Right carpal tunnel release Cholecystectomy Uterine ablation Allergies: * Phenergan * glimepiride * metformin * promethazine Medications: * Cyanocobalamin Sublingual 1,000 mcg tablet, sublingual one tablet sublingual once daily * Trazodone Oral 50 mg tablet 1-3 tablets by mouth once nightly for sleep * Multivitamins Oral Tablet Bariatric-two chewables by mouth once daily * Slow Fe (Ferrous Sulfate Oral ER Tab) one tablet by mouth once daily * Ropinirole Oral 2 mg tablet one tablet by mouth BID * Pantoprazole (Sodium) Oral Delayed Release 40 mg tablet,delayed release (DR/EC) one tablet by mouth1-2 times daily * Triamterene-Hydrochlorothiazide Oral Capsule 37.5 mg-25 mg two tablets by mouth once daily * Sertraline Oral 100 mg tablet two tablets by mouth once daily Social History: Negative smoking history Negative alcohol history Negative recreational drug use., Family History: Mother ??diabetes, [place] Sister??cervical cancer Maternal grandfather?? diabetes, [place] Vital Signs: Height: None Today; Weight: None Today; Blood pressure: , Pulse: , Temperature: , Respirations: , Pain Scale: 6 Karnofsky Not Assessed Physical Examination: GENERAL: ??The patient is alert, oriented and in no acute distress. HEENT: ??Anicteric sclerae. ??No conjunctival pallor. ??Oropharynx is clear. ??Neck is supple with free range of motion. ??No cervical, supraclavicular, or infraclavicular lymph nodes. ?? LUNGS: ??Clear to auscultation and percussion. ?? CARDIOVASCULAR: ??S1, S2; no gallops, murmurs or rubs.?? ABDOMEN: ??Positive bowel sounds. Soft, nontender, nondistended. No hepatosplenomegaly.?? EXTREMITIES: ??Extremities are without cyanosis, clubbing, or edema. ?? SKIN: ??There is no bleeding, bruising, or petechiae. NEURO: ??The patient is alert and oriented x3. ??Neurological exam is remarkable for intact cranialnerves II-XII. ??The patient has good strength in upper and lower extremities. Gait is normal. Finetouch is intact. Labs: CBC Lab Results 02/24/2024 12/21/2023 CBC WBC x 10^3/uL 5.80 RBC x 10^6/uL 4.10 (L) NRBC, absolute, x 10^3/uL 00 NRBC, % 0 HGB g/dL 10.2 (L) HCT % 33.9 (L) MCV fL 82.70 MCH pg 24.90 (L) MCHC g/dL 30.10 (L) RDW % 16.80 (H) PLT x 10^3/uL 230 MPV fL 10.4 Paul % 70.8 LY % 18.8 MO % 8.1 EO % 1.7 IG % 0.30 Paul # (ANC) x 10^3/uL 4.1 BA % 0.30 MO # x 10^3/uL 0.5 EO # x 10^3/uL 0.10 BA # x 10^3/uL 0.02 IG # x 10^3/uL 0.02 LY # x 10^3/uL 1.1 (L) Chemistries Lab Results 02/24/2024 12/21/2023 Chemistries Glucose mg/dL 254 (H) BUN mg/dL 13 Creatinine, mg/dL 0.85 BUN/Creatinine ratio 15.29 Sodium mmol/L 142 Potassium mmol/L 4.5 Chloride mmol/L 105 CO2 mmol/L 30 Calcium mg/dL 8.7 Albumin g/dL 3.3 (L) Total protein g/dL 6.8 Globulin g/dL 3.5 A/G ratio 0.9 Bilirubin, total mg/dL 0.41 Alkaline phosphatase U/L 81 AST/SGOT U/L 13 (L) ALT/SGPT U/L 21 GFR estimate mL/min/1.73m2 79 Copper, serum ug/dL 126 Zinc ug/dL 61 Lab Results 02/24/2024 12/21/2023 CBC WBC x 10^3/uL 5.80 RBC x 10^6/uL 4.10 (L) NRBC, absolute, x 10^3/uL 00 NRBC, % 0 HGB g/dL 10.2 (L) HCT % 33.9 (L) MCV fL 82.70 MCH pg 24.90 (L) MCHC g/dL 30.10 (L) RDW % 16.80 (H) PLT x 10^3/uL 230 MPV fL 10.4 Paul % 70.8 LY % 18.8 MO % 8.1 EO % 1.7 IG % 0.30 Paul # (ANC) x 10^3/uL 4.1 BA % 0.30 MO # x 10^3/uL 0.5 EO # x 10^3/uL 0.10 BA # x 10^3/uL 0.02 IG # x 10^3/uL 0.02 LY # x 10^3/uL 1.1 (L) Chemistries Glucose mg/dL 254 (H) BUN mg/dL 13 Creatinine, mg/dL 0.85 BUN/Creatinine ratio 15.29 Sodium mmol/L 142 Potassium mmol/L 4.5 Chloride mmol/L 105 CO2 mmol/L 30 Calcium mg/dL 8.7 Albumin g/dL 3.3 (L) Total protein g/dL 6.8 Globulin g/dL 3.5 A/G ratio 0.9 Bilirubin, total mg/dL 0.41 Alkaline phosphatase U/L 81 AST/SGOT U/L 13 (L) ALT/SGPT U/L 21 GFR estimate mL/min/1.73m2 79 Copper, serum ug/dL 126 Zinc ug/dL 61 Anemia Labs Iron ug/dL 30 (L) TIBC ug/dL 421 Ferritin ng/mL 5.6 (L) Iron, % saturation % 7 (L) Vitamin B12 pg/mL >2000 (H) Folate, serum ng/mL 3.46 (L) Lab - Other Lab Report See attached (OptionalFlowsheetCategory:Tumor Markers,Label:Tumor Markers,ValueIfNull:None Today Advance Care Planning: We have recommended routine advance care planning and have provided written materials about medicalpowers of supply coordinator and directives to physicians. Impression Report Plan: Iron Deficiency??Anemia secondary to prior gastric bypass Platelets and WBC normal ranges. Copper, Zinc, B12, Folate labs reviewed with Pt. Recommended Bariatric Vitamins daily C-Scope up to date. last done in 2018. continue f/u with GI?? Iron studies reviewed??and are very low despite oral iron replacement.?? Will proceed with IV iron infusion??and repeat labs in 9 weeks. fu with PCP for Diabetes Management Cancer Screening guidelines Mammogram annually Follow-up with Gynecology annually . Kuldip Pereira NP (Note: Portions of this document may have been generated using voice recognition software. Some incorrect words or phrases may have been missed during proof reading. Please interpret accordingly or contact me directly for clarification.) ? Send copy of note to: Mario Arenas MD . Electronically signed by Kuldip Pereira NP 03/05/2024 15:17 CDT * Nurse Note for: 22-MAR-24 [facility] Nurse Note Print Location: Unknown Date/Time Printed: 12/13/2024 12:21 ([facility]) Patient: ISHAN PHOENIX Sex: Female : 1965 Date of Service: 03/22/2024 Allergies : promethazine, metformin, glimepiride, Phenergan Vital Signs : Time: 02:00. Weight: 281 lb (127.46 kg). Height: 64 in (162.56 cm). BMI: 48.23 (kg/m2) . BSA: 2.26 (m2) . Temperature: 97.7 F (36.50 C) forehead. Pulse: 70 (/min) . Respirations: 20 (/min) . Blood pressure: 154/89 (mm Hg). O2 Saturation: 98 (%) . Entered by Domonique Goode RN 03/22/2024 09:06 Serial Vital Signs : Vitals Time: 13:43, B/P: 149/76 (mm Hg), Pulse: 63 (/min) by Domonique Goode RN 03/22/2024 13:50 Incident To Details : Incident to physician is present and immediately available to furnish assistance and provide supervision throughout the treatment. Entered By Domonique Goode RN on 08:52 Patient Assessment : Positive results Assessment : Alert, oriented with appropriate behavior. Entered By Domonique Goode RN on 08:52 IV Access/Lab Draw : IV Access-Peripheral - New Start, Primary Bag Fluid-0.9% Sodium Chloride, Primary Bag Volume-250 mLNeedle Type-Iv Cath, Needle Size-24 Gauge, Needle Length-3/4 inch, Access Site-Left Arm, Flush-10ml NS, Site Assess List-Blood Return,No Redness,No Swelling,No Tenderness,No Bruising, Site Care Checklist- Aseptic Technique, Dressing Change-Tegaderm,Alcohol, Lab Drawn-No, Access Attempts-2 time(s), Entered By Domonique Goode RN on 13:51 IV De-Access : IV Access Method-Peripheral - New Start, IV Access Type-Iv Cath, Line Flushed- 20ml NS, Catheter-Dc'd, Site Care-IV Infusion Completed,Therapy Completed Without Adverse Event, Site Assess-Line Intact,No Redness,No Swelling,No Tenderness,No Bruising, Entered By Domonique Goode RN on 14:21 Discharge Note : Comments-Therapy completed without adverse event, Discharged from clinic, Stable, Plan for next patient visit confirmed, Patient instructed to call office with any questions or problems, Accompanied By-Self, Discharge-Ambulatory, Discharge Time-03/22/2024 14:15 Entered By Domonique Goode RN on 14:21 Medication Administration : Incident to: Ashwin Carbajal MD, FACP Iron Dextran (InFed) (Intravenous Iron) Medication Test Dose Infed (Iron Dextran IV), 50 mg/mL solution, 25 mg intravenously Push once, Instructions: TEST DOSE prior to first therapeutic dose. Administer undiluted over at least 30 seconds (not to exceed 50 mg/min). Observe patient for at least 1 hour for signs and symptoms of a hypersensitivity reaction and/or anaphylaxis prior to administration of the remainder of the therapeutic dose. Ensure epinephrine (IM) is immediately available., Allow Substitution GIVEN: 25 mg Pharmacy plan: Dose Form Description: 50 mg/mL solution Dispense/Waste: 25/0 mg Amount in mL: 0.5 Pharmacy dispense: [facility]: [id number] Dispense/Waste: 25/0 mg Given Dose/Discard: 25/0 mg Start Time: 09:00, Entered By: Domonique Goode RN, Stop Time: 09:01, Entered By: Domonique Goode RN Incident to: Ashwin Carbajal MD, FACP Iron Dextran (InFed) (Intravenous Iron) Medications Infed (Iron Dextran IV), 50 mg/mL solution, 975 mg intravenously Piggyback once, Admin over: 1 hours to 2 hours, Instructions: Flat Single Dosing over 1-2 hours.NOTE: Only administer if no hypersensitivity reaction occurs during 1 hour observation period following test dose., Allow Substitution GIVEN: 975 mg Pharmacy plan: Dose Form Description: 50 mg/mL solution Dispense/Waste: 975/0 mg Amount in mL: 19.5 Pharmacy dispense: [facility]: [id number] Dispense/Waste: 975/0 mg Given Dose/Discard: 975/0 mg Start Time: 10:00, Entered By: Domonique Goode RN, Stop Time: 13:45, Entered By: Domonique Goode RN Admix Fluid: 0.9 % sodium chloride, Admix Fluid Volume: 250mL Double Checked By: Domonique Goode RN on 03/22/2024 09:54 and Kasia Valles RN Sr on 03/22/2024 09:54 * Nurse Note for: 05-MAR-24 [facility] Nurse Note Print Location: Unknown Date/Time Printed: 12/13/2024 12:21 ([facility]) Patient: ISHAN PHOENIX Sex: Female : 1965 Date of Service: 03/05/2024 Allergies : promethazine, metformin, glimepiride, Phenergan Vital Signs : Time: 14:09, no equipment to measure. Pain Scale: 6 knees and legs, RLS. Entered by Shu Cohen VC, MA Cell Installer 03/05/2024 14:10 Patient Assessment : Positive results Assessment : Alert, oriented with appropriate behavior, Gait Changes-balance. Complains of Pain-6 (knees and legs, RLS), Fatigue, Other-memory. Entered By Shu Cohen VC, MA Cell Installer on 14:13"
--- OUTSIDE RECORDS SUMMARY | 2024-12-13 12:22 | XMS_ITS | Clinical Summary ---
Author Organization [facility] Address [address] [place] [address] Care Team Providers Care Scallop Raker Name Role Phone Kevin Whipple MD Primary Care Provider [phone] Source Comments [facility],non-owned Affiliates and Associated Physician Practices is amultiple site organization consisting of ambulatory clinics and hospital sitesin [place], [place], [place] and [place]. This disclosure is being madepursuant to the Care Everywhere program and may not contain all information available regarding this patient. Last updated 18.[facility] Social History Tobacco Use Types Packs/Day Years Used Date Smoking Tobacco: Never Assessed Sex and Gender Information Value Date Recorded Sex Assigned at Not on file Gender Identity Not on file Sexual Orientation Not on file Last Filed Vital Signs Vital Sign Reading Time Taken Comments Blood Pressure 122/84 03/01/2017 11:04 AM CDT Pulse 84 03/01/2017 11:04 AM CDT Temperature 36.7 C (98.1 F) 03/01/2017 11:04 AM CDT Respiratory Rate 16 03/01/2017 11:04 AM CDT Oxygen Saturation 98% 03/01/2017 11:04 AM CDT Inhaled Oxygen Concentration - - Weight 128.8 kg (284 lb) 03/01/2017 11:04 AM CDT Height 162.6 cm (5' 4 ) 03/01/2017 11:04 AM CDT Body Mass Index 48.75 03/01/2017 11:04 AM CDT Plan of Treatment Health Maintenance Due Date Last Done Comments COLOGUARD (AGES 45-75) - COL ON CA SCREENING 1965 COLON MONITORING 1965 COLONOSCOPY - COLON CA SCREENING 1965 CT COLONOGRAPHY - COLON CA SCREENING 1965 Colorectal Cancer Screening 1965 FIT - COLON CA SCREENING 1965 FLEX SIG - COLON CA SCREENING 1965 LIPID TESTING 1965 MAMMOGRAM 1965 PAP SMEAR 1965 HIV SCREENING 1980 DTAP/TDAP/TD VACCINES (1 - Tdap) 1984 HEPATITIS B VACCINE (1 of 3 - 19+ 3-dose series) 1984 PNEUMOCOCCAL VACCINE 50+ (1 of 1 - PCV) 2015 ZOSTER VACCINE (1 of 2) 2015 COVID-19 VACCINE ( - 2023-2 5 season) 2024 INFLUENZA VACCINE (#1) 2024 DEPRESSION SCREENING 09/26/2024 HEPATITIS C SCREENING Completed 03/03/2017 HIB VACCINE Aged Out No longer eligi ble based on patient's age to complete this topic HPV VACCINE Aged Out No longer eligi ble based on patient's age to complete this topic MENINGOCOCCAL (Group B) VACC INE SHARED DECISION-MAKING Aged Out No longer eligibl e based on patient's age to complete this topic MENINGOCOCCAL GROUPS A/C/Y/W VACCINE Aged Out No longer eligible b ased on patient's age to complete this topic PNEUMOCOCCAL VACCINE Aged Out No long er eligible based on patient's age to complete this topic Procedures Procedure Name Priority Date/Time Associated Diagnosis Comments HEPATITIS C AB W/RFLX TO HCV RNA QN PCR Routine 03/03/2017 8:31 AM CDT from Last 3 Months or Most Recently Relevant to Health Maintenance Results * HEPATITIS C AB W/RFLX TO HCV RNA QN PCR (03/03/2017 8:31 AM CDT) Hepatitis C Antibody NON-REACTI VE NON-REACT MP [facility] Signal/Cutoff 0.01 <1.00 [facility] Comment: Test Performed at: [facility] [id number] [address] [facility] [address] ANDREAS RAMEY DO,MPH 03/03/2017 8:31 AM CDT 03/03/2017 8:31 AM CDT Rafaela Baca MD LAB - CHEMISTR Y ORDERABLES [facility]) from Last 3 Months or Most Recently Relevant to Health Maintenance Care Teams Scallop Raker Relationship Specialty [place] [address] [facility] [place] [address] PCP - General 08/21/08
--- OUTSIDE RECORDS SUMMARY | 2024-12-13 12:22 | XMS_ITS | Patient Health Record ---
Author Organization [facility] Address [address] [place] [id number] Care Team Providers Care Head [employer] Assistant Teacher Name Role Phone NO JIN Primary Care Provider JUSTUS Cuello [phone] Allergies Allergen (clinical drug ingredient) Drug/Non Drug Allergy documented on EMR Reaction Allergy Type Onset Date Status promethazine Phenergan Unknown Drug Allergy Acti ve Reason For Referral No Information Medications Medication SIG (Take, Route, Frequency, Duration) Notes Start Date End Date Status Maxzide 75-50 MG 1 tablet in the morn ing Orally Once a day for 30 day(s) Active rOPINIRole HCl 3 MG 1 tablet 1 to 3 hour s before bedtime Orally Once a day for 30 day(s) Active Acetaminophen-Codeine #3 300-30 MG 1 tablet as needed Orally every 6 hrs 10/16/2021 Not-Taking Sertraline HCl 100 MG 1 tablet Orally On ce a day for 30 day(s) Active Bariatric Multivitamins/Iron - as directed Orally A ctive Pregabalin 75 MG 1 capsule Orally Twi ce a day Active Vitamin C 500 MG as directed Orally Active Problems Problem Type SNOMED Code ICD Code Onset Dates Problem Status W/U Status Risk Notes Problem Traumatic arthropathy of knee (864366874) 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 Plan Of Treatment Pending Test Test Name Order Date MRI : Knee, right 10/16/2021 X ray: Knee 2V AP/LAT right 10/16/2021 Insurance Providers Payer Name Payer Address Payer Phone Subscriber Number Group Number Insured Name Patient Relationship to Insured Coverage Start Date Coverage End Date [facility] [address] [place] [id number] ISHAN PHOENIX Self - patient is the insured Medical (General) History Medical History History ICD Code Cardiovascular: Hypertension, Gastrointestinal: Gastric Reflux (GERD), Gall Stones, Genitourinary: Menstrual Problems, Endocrine: Diabetes, Neurologic / Psychologic: Anxiety, Depre ssion, Carpal Tunnel Syndrome, Other: Yes:, Surgical History Surgery Date(Month/Year) Gastric Bypass Cholecystectomy Section Hospitalization History Reason Date(Month/Year) As Listed in Surgical History
--- OUTSIDE RECORDS SUMMARY | 2024-12-13 12:22 | XMS_ITS | Data Portability ---
Author Organization [place] - MONICA MARTINEZ, [place] - [facility] Address [address] [place] [address] Assessment No assessment recorded. Plan of Treatment Reminders Order Date Submit Date Provider Last Modified By Organization Details Last Modified Time Details Appointments None record ed. Lab None record ed. Referral None record ed. Procedures None record ed. Surgeries None record ed. Imaging XR, knee 023 08/17/20 23 [email or web address] [facility], [address] [place] [address], [phone], 13:21:25 Medication Orders None record ed. Patient TargetsNo targets recorded. Patient Instructions Encounter Date Encounter Id Patient Instructions Last Modified By Organization Details Last Modified Time 08/16/2023 [id number] The patient does have moderate arthritic changes in the lateral joint line and does not want to consider surgical options at this time. She was given a list of supplements and I would like to re-evaluate in 4 weeks or sooner if needed if she decides to proceed with steroid injection she might even let me know sooner as we should be able to work her in for a steroid injection with little to no wait. Re-eval sooner if needed. The patient was evaluated today. The patient's history of present illness, system review, and results of physical examination, previous imaging and any imaging taken today was discussed. The treatment plan was discussed including any further testing that might need to be performed, recommendations for conservative treatment, physical therapy, and/or current or possible future surgical intervention was discussed with the patient today. Total time spent with the patient today discussing their medical condition and recommendations was {{15 20 25 30 31 32 33 34 35 36 37* 38 39 40}} minutes. [email or web address] Not available 08/22/2023 13:20:47 Reason for Referral None Reported. Results Created Date Observation Date Name Description Value Unit Range Abnormal Flag Note LastModifiedBy Organization Detail LastModifiedTime 08/17/20 23 XR, knee No observ ation record ed. [email or web address] [facility] [address] [facility], [place], [address], 08/22/2023 13:19:47 Result Notes None recorded. Problems Name Problem SNOMED Code Status Onset Date Resolution Date Notes Provider Name and Address Organization Details Recorded Time Hypertensive disorder 47156136 Active 2022 LEONA Vazquez D.O. PA 3 15:10:42 Diabetes mellitus 92383572 Active 2022 LEONA Vazquez D.O. PA 3 15:11:59 Fatigue 63409576 Active 2022 LEONA Vazquez D.O. 3 15:12:25 Heartburn 89600211 Active 2022 LEONA Vazquez D.O. PA 3 15:12:37 Anemia 000175640 Active 2022 LEONA Vazquez D.O. PA 3 15:12:49 Anxiety 85170062 Active 2022 LEONA Vazquez D.O. PA 3 15:13:16 Depressive disorder 96804545 Active 2022 LEONA Vazquez D.O. 3 15:13:22 Problem Notes None recorded. Procedures Surgical History Date Name Laterality Status Provider Name and Address Organization Details Recorded Time Gastric bypass for obesity completed Lubna MARTINEZ 08/17/2023 15:16:16 delivery completed Lubna ARVIZU D.O. PA 08/17/2023 15:16:35 Gallbladder Surgery completed Lubna ARVIZU D.O. PA 08/17/2023 15:16:49 procedure on foot completed Lubna MARTINEZ 08/17/2023 15:17:25 Imaging Results Imaging Date Name Status LastModified by Organiz ation Details LastModified Time 08/17/2023 XR, knee completed [email or web address] [address], [place], [address], 08/22/2023 13:19:47 Procedure Notes None recorded. Medical Equipment None Reported. Allergies Allergen ID Allergen Name Allergen Category Reaction Reaction Severity Criticality Documentation Date Start Date Code Code System Note Provider Name and Address Organization Details Recorded Time 84198 Phenergan medicatio n muscle cramps Not available Not available 08/17/2023 02254 8 RxNorm loss of muscl e contr ol LEONA Vazquez D.O. 15:08:44 Medications Name Sig Start Date Stop Date Status Note LastModified by Organization Details LastModified Time sertraline 100 mg tablet take 2 tabletS BY MOUTH every day active Not Available Not Available No t Available glimepiride 2 mg tablet take 1 tablet by mouth 2 times every day with meals active Not Available Not Available No t Available ropinirole 2 mg tablet Take 1 tablet 3 times a day by oral route. active Not Available Not Available No t Available pantoprazole 40 mg tablet,delayed release Take 1 tablet every day by oral route. active Not Available Not Available No t Available Maxzide 75 mg-50 mg tablet Take 1 tablet every day by oral route. active Not Available Not Available No t Available sertraline 200 mg capsule Take 1 capsule every day by oral route. active Not Available Not Available No t Available Vitals Date Recorded Body height Provider Name an d Address Organization Details Last Updated DateTime 08/16/2023 162.56 cm Lubna MARTINEZ 08/17/2023 15:08:01 Social History Question Answer Notes LastModified by Organizat ion Details LastModified Time Tobacco Smoking Status Never Smoker LEONA Vazquez D.O. 08/17/2023 15:15:57 What Is Your Level Of Alcohol Consumption? None [email or web address] Information not available 08/17/2023 Do You Use Any Illicit Or Recreational Drugs? No [email or web address] Information not available 08/17/2023 Sex: Unknown Functional Status None recorded. Mental Status None recorded. Family History Relationship Description Onset Age of this Age Resolved Age Notes LastModified by Organization Details LastModified Time Father Malignant tumor of lung Not available 15:13:46 Mother Cerebrovascu lar accident [email or web address] Not available 08/17/2023 15:14:05 Mother Myocardial infarction [email or web address] Not available 15:14:15 Mother Hypertensive disorder [email or web address] Not available 15:14:25 Mother Diabetes mellitus Not available 15:14:35 Sister Malignant tumor of cervix [email or web address] Not available 15:14:54 Sister Psoriasis [email or web address] Not avai lable 08/17/2023 15:15:34 Medical History Condition Response Coronary Artery Disease N Other N Anxiety/Depression Y Gout N Hyperthyroidism N MRSA N Blood Transfusion N Hernia N Head Trauma/Injury N Emphysema N Ostomy N Lung Disease N COPD N Hypothyroidism N Depression N Pacemaker N Prostate Problems N Vascular Disease N Gastrointestinal Disease N Paralysis N Spasticity N Anxiety Disorder N Autoimmune disease N Muscle, Joint, or Bone Problems N Vision or Eye Problems N Orthotics N Arthritis N Serious Illness or Injuries N Blood Clot N Cancer N Stroke N Crohn's Disease N Leg or Foot Ulcers N Neck Injury N Alcohol Overuse/Alcohol Abuse N High Cholesterol N Neurologic Disorder N Liver Disease N Organ Transplant N Arrhythmia N Rheumatoid Arthritis N Headaches N Fibromyalgia N Kidney Disease N Allergies/Hayfever N Heart Problems N Parkinson's Disease N Hospitalizations N Falls N Migraines N Thyroid Problems N Kidney or Bladder Problems N Carpel Tunnel N ADD/ADHD N Skin Problems N Joint Pain Y Neck Pain N Osteoporosis/Osteopenia N Anemia Y Back Pain N Urinary Problems N Brain Injury N Heart Attack ([place]) N Ulcers N Mental Illness N Diabetes Y Bleeding Disorder N Seizures/Epilepsy N Tuberculosis N AIDS/HIV N Congestive Heart Failure (CHF) N Hyperlipidemia N Asthma N Amputation N Ankylosing Spondylitis N Peripheral Vascular Disease N Reflux/GERD N Sleep Apnea N Sleep Disorder N Aneurysm N Hepatitis N Heart Disease N Neuropathy N Pulmonary Embolism N Hypertension Y Osteoporosis N Gynecological HistoryNo gynecological history recorded. Obstetrics History GPAL:G 0 P 0 0 0 0 Past Encounters Encounter ID Performer Location Encounter Start Date Encounter Closed Date Diagnosis/Indication Diagnosis SNOMED-CT Code Diagnosis ICD10 Code Diagnosis Note [id number] JUAN Armstrong [address] [address] 08/16/2023 16:58:31 08/22/2023 13:21:24 Osteoarthritis of right knee joint 0659085432 33016 M17.11 Right knee with moderate lateral compartmen t joint space loss per radiograph s on 08/22/23. Health Concerns Section Related Observation LastModified by Organization Detai ls LastModified Time None Recorded Concern Status LastModified by Organization Details LastModified Time None Recorded Advance Directives Directive None Recorded Payers Encounter Date Sequence Insurance Name Policy Number Policy Spangler Covered Member ID Spangler Member ID Guarantor Name 08/16/2023 1 [employer] [place] Belkis Chan [id number] Belkis Chan Notes Date Note Type Note Provider Name and Address Organization Details Recorded Time 08/16/2023 text/html KneeReported bypatient.Location :right; medial; deep Quality:aching; stabbing (with activity); sharp; frequent; worsening Severity:severe; pain level 7-8/10; worst pain 10/10 Duration:date of onset:; 2 years Timing:acute Context:twisting Alleviating Factors:sitting; lying down; position change; ice; rest; elevation; limited weight bearing; OTC medication Aggravating Factors:walking; lifting; carrying; twisting; bending/squatting; pushing/pulling; ROM; exercise; getting out of bed; going from sit to stand; morning; daytime; nighttime Associated Symptoms:no weakness; no numbness; no tingling; no redness; no warmth; no grinding; no instability; no radiation down leg;swelling;catch ing/locking;poppin g/clicking;bucklin g; Inability to fully extend Previous Surgery:none Prior Imaging:none Previous Injections:none Previous PT:none Work Related:no Working:regular duty JUAN Armstrong [address] [place], [address], LEONA MARTINEZ 08/22/2023 13:21:10 OBGyn Episode No OBEpisode recorded.
--- OUTSIDE RECORDS SUMMARY | 2024-12-13 12:22 | XMS_ITS | CCD ---
Author Name Interface, [id number] lity Address [place] [address] [facility] Address [place] [address] Care Team Providers Care Graduate Studies Dean Name Role Phone Andrew Moe Unavailable Unavailable Allergies and Adverse Reactions Care Plan Reason for Visit Encounters Immunizations Diagnostic Results Medications Administered Medications Problems Procedures Social History Vital Signs
--- OUTSIDE RECORDS SUMMARY | 2024-12-13 12:22 | XMS_ITS ---
Author Organization [facility]ta platt Billing Info Address [address] [place], [place] [address] Care Team Providers Care Residential Program Director Name Role Phone ANA ARENAS Unavailable [phone] NIDIA SNYDER Unavailable [phone] REASON FOR VISIT 3 MO F/U R KNEE Encounters Encounter Location Date Provider Diagnosis [id number] [facility] [address] [address] 12/11/2024 NIDIA SNYDER Primary osteoarthrit is of right knee M17.11 Assessments Encounter Date Diagnosis (ICD Code) Assessment Notes Treatment Notes Treatment Clinical Notes Section Notes 12/11/2024 Primary osteoarthritis of right knee (ICD-10 - M17.11) Plan Of Treatment No Information Progress Notes * LIZETTBelkisDOB:1965 ( 59 yo F)Acc No.[id number]:12/11/2024 PROGRESS NOTE Patient: Belkis DEJESUS Provider: MARGOTH PIERRE APRN :1965 A ge:59 Y S ex:Female Date:12/11/2024 C HN#:[id number] Address:[address] [place] [phone] Subjective: * Chief Complaints: * 1 . 3 MO F/U R KNEE. * HPI: P atient History: 58-year-old female presenting for evaluation of right knee pain. She has had over a year of knee pain though she notes that in the last 3 months, the pain has gotten much worse. She had notices trouble with bending the knee and also difficulty with walking. She has tried taking Tylenol, using heat and ice. She cannot take any NSAIDs. She had a Shimon-en-Y bypass approximately 5 years ago. She lost to 110 pounds but gained 80 of it back. Unfortunate because of the bypass she is not supposed to be taking any NSAIDs. She does not smoke. Does not take blood thinners. Does have diabetes and her A1c is 8.9 when it was last checked in the middle of June. No heart, lung or kidney problems but was noted to have anemia, likely as a side effect of the Shimon-en-Y bypass. They put her on an iron infusion and she notes that the hemoglobin did go back up to the normal range but most likely it has dropped again since then. * ROS: A complete review of systems was performed and was negative except as noted in the HPI. * Medical History: Objective: * Vitals: * Examination: G ENERAL EXAMINATION: Constitutional: n o apparent distress. Skin: n o rashes, warm. Lymphatics: n o lymphadenopathy. Head: n ormocephalic, atraumatic. Eyes: P ERRLA, non-icteric sclera. Ears/Nose/Throat: n o obvious deformity. Neck: s upple. Lungs: r espiration unlabored. Abdomen: n ondistended. Neurological: a lert and oriented. Psych: a ppropriate mood and affect. R ight knee: N o gross deformity Mild to moderate effusion Tender to palpation along the medial and lateral joint line Range of motion from 0-70 degrees, painful Valgus alignment clinically Stable to varus and valgus stress at zero and 30 degrees Stable to anterior and posterior stress DP and PT pulses 2+ Strength and sensation grossly intact. Assessment: * Assessment: 1. P rimary osteoarthritis of right knee - M17.11 (Primary) Plan: * Treatment: * Care Plan Details* * This progress note has not b een verified nor is it considered complete until locked and signed by the provider. Sign off status: Pending * Provider: MARGOTH PIERRE APRN Date: 0 12/11/2024 Generated for Juvencio schuler/Marcela/Inocencioitting on: 0 12/13/2024 12:22 PM CDT History and Physical Notes * Examination Category Sub-Category Detail Notes Category Not es Right knee No gross deformity Mild to moderate effusion Tender to palpation along the medial and lateral joint line Range of motion from 0-70 degrees, painful Valgus alignment clinically Stable to varus and valgus stress at zero and 30 degrees Stable to anterior and posterior stress DP and PT pulses 2+ Strength and sensation grossly intact GENERAL EXAMINATION Constitutional: no apparent distre ss Skin: no rashes, warm Lymphatics: no lymphadenopathy Head: normocephalic, atrau matic Eyes: PERRLA, non-icteric sclera Ears/Nose/Throat: no obvious deformity Neck: supple Lungs: respiration unlabore d Abdomen: nondistended Neurological: alert and oriented Psych: appropriate mood and affect
--- OUTSIDE RECORDS SUMMARY | 2024-12-13 12:22 | XMS_ITS | Clinical Summary ---
Author Organization [facility] Address [address] [place] [address] Care Team Providers Care Registered Nurse Post Partum Name Role Phone Shawn Solares MD Primary Care Provider Medications No known medications Active Problems Problem Noted Date Diagnosed Date Carpal tunnel syndrome, bilateral upper limbs Social History Tobacco Use Types Packs/Day Years Used Date Smoking Tobacco: Never Assessed Comments Unknown Sex and Gender Information Value Date Recorded Sex Assigned at Not on file Legal Sex Female 9:20 PM CDT Gender Identity Not on file Sexual Orientation Not on file Last Filed Vital Signs Vital Sign Reading Time Taken Comments Blood Pressure 150/99 05/12/2015 10:06 PM CDT Pulse - - Temperature - - Respiratory Rate - - Oxygen Saturation - - Inhaled Oxygen Concentration - - Weight 123.8 kg (273 lb) 05/12/2015 10:06 PM CDT Height 162.6 cm (5' 4 ) 05/12/2015 10:06 PM CDT Body Mass Index 46.86 05/12/2015 10:06 PM CDT Plan of Treatment Health Maintenance Due Date Last Done Comments Cervical Cancer Screening Pa p Smear (Age 30 to 64) Every 3 Years 1965 Colorectal Cancer Screening Colonoscopy (10 Years) 1965 Annual Physical 1968 Hepatitis C 1983 DTaP, Tdap and Td Vaccines ( 1 - Tdap) 1984 Hepatitis B Vaccines (1 of 3 - 19+ 3-dose series) 1984 Cervical Cancer Screening Pa p with HPV Testing (Age 30 to 64) Every 5 Years 1995 Cervical Cancer Screening with HPV 1995 Zoster Vaccines (1 of 2) 2015 Mammogram Screening 08/31/2021 08/31/2019 COVID-19 Vaccine (2023-2 5 season) 2024 Influenza Adult (#1) 2024 Pneumococcal Vaccine: Pediat rics (0 to 5 Years) and At-Risk Patients (6 to 64 Years) Aged Out 02/01/2018 No longer eligi ble based on patient's age to complete this topic Meningococcal B Vaccine Aged Out No l onger eligible based on patient's age to complete this topic Meningococcal Vaccine Aged Out No dione yaw eligible based on patient's age to complete this topic RSV Immunizations Under 20 Months Aged Out No longer eligible based on patient's age to complete this topic Procedures Procedure Name Priority Date/Time Associated Diagnosis Comments MG SCREENING W PETE BILL DIGI Routine 08/31/2019 12:46 PM [facility] [employer] Visit for screening mammogram from Last 3 Months or Most Recently Relevant to Health Maintenance Results * MG SCREENING W PETE BILL DIGI (08/31/2019 12:46 PM [facility] [employer]) Anatomical Region Laterality Modality Breast Bilateral Mammography 09/12/2019 8:07 AM [facility] [employer] Impressions 09/12/2019 8:09 AM [facility] [employer] IMPRESSION: No suspicious change since the previous exams. Recommendation: 1: Routine screening mammogram Bilateral in 1 Year Assessment: ACR BI-RADS Category 2 - Benign. Interpreted By: Tereso Gifford, 09/12/2019 8:07 AM Narrative 09/12/2019 8:09 AM [facility] [employer] Examination: Digital screening mammogram with CAD. Clinical history: Asymptomatic patient presents for routine screening. Comparison: 06/24/2012. Technique: Bilateral digital mammograms. The exam was interpreted with the use of a computer-aided detection (CAD) system. Additional 3-D tomosynthesis images were acquired. Tissue density: The breast tissue contains scattered fibroglandular densities. Findings: The breast tissue contains scattered fibroglandular densities. Benign-appearing calcification noted. No suspicious mass, microcalcification or area of architectural distortion can be identified. From a mammographic standpoint, routine followup in one year would seem adequate. us Shawn Solares MD MAMMO Final Resul t from Last 3 Months or Most Recently Relevant to Health Maintenance Insurance [facility] Care Teams Registered Nurse Post Partum Relationship Specialty Start Date End Date Shawn Solares MD [address] [place] [phone] PCP - General FAMILY PRACTICE 08/16/19
--- OUTSIDE RECORDS SUMMARY | 2024-12-13 12:22 | XMS_ITS ---
Author Organization [facility] Billing Info Address [address] [place], [place] [address] Care Team Providers Care Lace Pinner Name Role Phone ANA ARENAS Unavailable [phone] Allergies Allergen (clinical drug ingredient) Drug/Non Drug Allergy documented on EMR Reaction Allergy Type Onset Date Status promethazine Phenergan unknown Drug Allergy Acti ve Results Component Value Reference Range Notes XRAY-KNEE, RIGHT; 3 VIEWS (4 3290) IH Reviewed date:09/06/2024 09:42:03 AM Interpretation: Performing Lab: Notes/Report: REASON FOR VISIT CORPORATE TRAVEL CONSULTANT, Self Ref, Right knee pain, instability, ongoing, no recent imaging Medications Medication SIG (Take, Route, Fr equency, Duration) Notes Start Date End Date Status Ropinirole HCl Activ e Trazodone HCl Active Sertraline HCl Activ e Pantoprazole Sodium Active Maxzide Active Social History Tobacco Use: Social History Observation Description Date Details (start date - stop date) Never Smoker NA - NA Tobacco Status: Question Answer Notes Patient is a never smoker Vital Signs Height 64 in 09/06/2024 Weight 270 lbs 09/06/2024 BMI 46.34 kg/m2 09/06/2024 Blood pressure systolic 162 mm Hg 09/06/20 24 Blood pressure diastolic 111 mm Hg 024 Heart Rate 69 /min 09/06/2024 Encounters Encounter Location Date Provider Diagnosis [id number] [place] [facility] [address] [place] [address] 09/06/2024 ANA ARENAS Primary osteoarthrit is of [...] return to clinic sooner. Plan Of Treatment Treatment Notes Assessment Notes Primary osteoarthritis of right knee I r eviewed her imaging with her. She has significant [...] were advised to return to clinic sooner. Next Appt Details Follow Up: 3 Months, Reason: Medications Administered Medication Instructions Date of Administration Dosage Notes Kenalog 09/06/2024 1 mL [facility]: [address] 12-21 Progress Notes * LIZETTSergioenriqueDOB:1965 ( 58 yo F)Acc No.[id number]:09/06/2024 PROGRESS NOTE Patient: N Belkis HOROWITZ Provider: Lizbeth ARENAS MD :1965 A ge:58 Y S ex:Female Date:09/06/2024 C BRE#:[id number] Address:[address] [place], [place] [phone] Subjective: * Chief Complaints: * N P, Self Ref, Right knee pain, instability, ongoing, no recent imaging * HPI: P atient History: 58-year-old female [...] noted in the HPI. * Medical History: * Surgical History: g all bladder surgery tonsillectomy C section * Hospitalization/Major Diagno stic Procedure: N o Hospitalization History. * Family History: N on-Contributory. * Social History: A lcohol Use P atient d oes not use alcohol. T obacco Status P atient is a never smoker. * Medications: T akingPantoprazole Sodium Maxzide Ropinirole HCl Trazodone HCl Sertraline HCl Medication List reviewed and reconciled with the patientTaking Pantoprazole Sodium Taking Maxzide Taking Ropinirole HCl Taking Trazodone HCl Taking Sertraline HCl Medication List reviewed and reconciled with the patient * Allergies: P charissa: unknownno[Allergies Verified] Objective: * Vitals: H t: 64 in, Ht-cm: 162.56 cm, Wt: 270 lbs, Wt-k.47 kg, BMI:46.34, Body Surface Area: 2.35, BP:162/111, Repeat BP:156/97, HR:69, Pain scale: 5. * Examination: G ENERAL EXAMINATION: Constitutional: n [...] knee - M17.11 (Primary) Plan: * Treatment: Notes: I reviewed her imaging with her. She has significant osteoarthritis of the knee, mostly in the lateral and patellofemoral compartments. We discussed the progression of the disease and its natural history. We discussed a range of management options including oral NSAID medication, injections,physical therapy, activity modification and weight loss, as [...] were advised to return to clinic sooner. ? * Procedures: T he right knee was injected under sterile conditions using an anterolateral portal approach. I injected 1cc (40mg) of Kenalog and 5ccs of 1% lidocaine. The patient tolerated the procedure well and post injection instructions were given. * Therapeutic Injections: Triamcinolone Acetonide (Kenalog) : 1 mL (Route: Other/Miscellaneous) given by ANA ARENAS MD on Right Knee * Procedure Codes: 7 3562 X-RAY EXAM OF KNEE, 892438 ARTHROCENTESIS ASPIR&/INJ MAJOR JT/BURSA W/O [id number] INJ TRIAMCINOLONE ACETONIDE 10 MG * Follow Up: 3 Months * Care Plan Details* * R RACER Sign off status: Completed true * Provider: Lizbeth ARENAS MD Date: 1 11/07/2023 Generated for Juvencio schuler/Marcela/Inocencioitting on: 0 12/13/2024 12:21 PM CDT History and Physical Notes * [...]
--- OUTSIDE RECORDS SUMMARY | 2024-12-13 12:22 | XMS_ITS | Clinical Summary ---
Author Organization [facility] Address [address] [place] [address] Phone Care Team Providers Care Gang Drill Press Operator Name Role Phone Provider, None Primary Care Provider Unavailabl e Allergies Active Allergy Reactions Criticality Noted Date Comments Promethazine Other (see Comments) 11/20/2024 Lose muscle control Medications No known medications Encounters Date Type Department Care Team Description 11/20/2024 7:39 PM MOLD REPAIRER - 11/20/2024 10:40 PM MOLD REPAIRER Emergency [facility] Emergency [address] [place] [address] Discharge Disposition: LWBS 11/20/2024 Travel from Last 3 Months Social History Tobacco Use Types Packs/Day Years Used Date Smoking Tobacco: Never Smokeless Tobacco: Never Tobacco Cessation:Counseling Given: Not Answered Alcohol Use Standard Drinks/Week Comments Not Currently 0 (1 standard drink = 0.6 oz pur e alcohol) Comments No Sex and Gender Information Value Date Recorded Sex Assigned at Not on file Legal Sex Female 11:00 PM CDT Gender Identity Not on file Sexual Orientation Not on file Last Filed Vital Signs Vital Sign Reading Time Taken Comments Blood Pressure 159/92 11/20/2024 7:42 PM MOLD REPAIRER Pulse 69 11/20/2024 7:42 PM MOLD REPAIRER Temperature 36.1 C (97 F) 11/20/2024 7:42 PM MOLD REPAIRER Respiratory Rate 16 11/20/2024 7:42 PM MOLD REPAIRER Oxygen Saturation 100% 11/20/2024 7:42 PM MOLD REPAIRER Inhaled Oxygen Concentration - - Weight 122.5 kg (270 lb) 11/20/2024 7:42 PM MOLD REPAIRER Height 162.6 cm (5' 4 ) 11/20/2024 7:42 PM MOLD REPAIRER Body Mass Index 46.35 11/20/2024 7:42 PM MOLD REPAIRER Plan of Treatment Health Maintenance Due Date Last Done Comments Hepatitis C Virus (HCV) Screening 1965 Hepatitis B Immunization (1 of 3 - 19+ 3-dose series) 1984 Pap Smear 1986 Cervical Cancer Screening (CCS) 1995 HPV/Cotest 1995 Colonoscopy 2010 Colorectal Cancer Screening 2010 Cologuard 2015 Immunochemical Fecal Occult Blood 2015 Zoster Immunization (1 of 2) 2015 Pneumococcal Immunization (50+ years) (2 of 2 - PPSV23) 02/01/2019 02/01/2018 Mammogram 08/31/2020 08/31/2019, 08/31/2019 Influenza Immunization (#1) 2024 110 12/2019, 07/10/2019, 07/04/2018, Additional history exists SARS-COV-2 Immunization ( - 2023- season) 2024 Respiratory Syncytial Virus (RSV) Immunization (Adult) (1 - 1-dose 75+ series) 2040 TdaP Immunization Completed 02/01/2018 Meningococcal Immunization (ACWY) Aged Out No longer eligible based on patient's age to complete this topic Rotavirus Immunization Aged Out No lo nger eligible based on patient's age to complete this topic Procedures Procedure Name Priority Date/Time Associated Diagnosis Comments CT HEAD OR BRAIN WO CONTRAST Stat with Interpretation 11/20/2024 9:35 PM MOLD REPAIRER XR SACRUM & COCCYX STAT 11/20/2024 9:27 PM MOLD REPAIRER XR KNEE 1 OR 2 VIEWS RIGHT STAT 11/20/2024 9:27 PM MOLD REPAIRER XR ELBOW MINIMUM 3 VIEWS RIGHT STAT 11/20/2024 9:26 PM MOLD REPAIRER XR FOOT 3 OR MORE VIEWS LEFT STAT 11/20/2024 9:26 PM MOLD REPAIRER from Last 3 Months Results * CT HEAD OR BRAIN WO CONTRAST (11/20/2024 9:35 PM MOLD REPAIRER) Anatomical Region Laterality Modality Head N/A Computed Tomogra phy 11/20/2024 9:45 PM MOLD REPAIRER Impressions 11/20/2024 9:48 PM MOLD REPAIRER IMPRESSION: No acute intracranial findings. Narrative 11/20/2024 9:48 PM MOLD REPAIRER EXAM DESCRIPTION: CT HEAD OR BRAIN WO CONTRAST REASON FOR STUDY: Minor head trauma TECHNIQUE: Axial images acquired through the brain without intravenous contrast. Images stored on PACS. Automated exposure control was used as a dose optimization technique for this examination. COMPARISON: 2013 FINDINGS: BRAIN: No hemorrhage, edema or mass effect. No recent infarct. Normal white matter. EXTRA-AXIAL SPACES: No fluid collections. No masses. CALVARIUM: No fracture. SINUSES/MASTOIDS: No fluid or mucosal thickening. ORBITS: No significant abnormality. OTHER: No other significant abnormality. THIS IS AN ELECTRONICALLY VERIFIED FINAL REPORT 11/20/2024 9:45 PM - Electronically signed by Tip BAUTISTA: MICHELE Report ID: [id number] Reading Location: [place] [id number] Procedure Note Tip Loza MD - 11/20/2024 EXAM DESCRIPTION: CT HEAD OR BRAIN WO CONTRAST REASON FOR STUDY: Minor head trauma TECHNIQUE: Axial images acquired through the brain without intravenous contrast. Images stored on PACS. Automated exposure control was used as a dose optimization technique for this examination. COMPARISON: 2013 FINDINGS: BRAIN: No hemorrhage, edema or mass effect. No recent infarct. Normal white matter. EXTRA-AXIAL SPACES: No fluid collections. No masses. CALVARIUM: No fracture. SINUSES/MASTOIDS: No fluid or mucosal thickening. ORBITS: No significant abnormality. OTHER: No other significant abnormality. THIS IS AN ELECTRONICALLY VERIFIED FINAL REPORT 11/20/2024 9:45 PM - Electronically signed by Tip BAUTISTA: MICHELE Report ID: [id number] Reading Location: [id number] IMPRESSION: No acute intracranial findings. Garrett Long MD [facility] [place] ORDERABLES Final R esult * XR SACRUM & COCCYX (11/20/2024 9:27 PM MOLD REPAIRER) Anatomical Region Laterality Modality Spine, Sacrum, Coccyx N/A Digital Ra diography 11/20/2024 9:43 PM MOLD REPAIRER Impressions 11/20/2024 9:45 PM MOLD REPAIRER IMPRESSION: No acute osseous abnormality. Narrative 11/20/2024 9:45 PM MOLD REPAIRER EXAM DESCRIPTION: XR SACRUM and COCCYX REASON FOR STUDY: injury TECHNIQUE: 3 radiographic view(s) of the sacrum . COMPARISON: None FINDINGS: BONES/JOINTS: There is no acute fracture, malalignment or osseous abnormality. The joint spaces are normal. SOFT TISSUES: Within normal limits. THIS IS AN ELECTRONICALLY VERIFIED FINAL REPORT 11/20/2024 9:43 PM - Electronically signed by Tip BAUTISTA: MICHELE Report ID: [id number] Reading Location: [id number] Procedure Note Tip Loza MD - 11/20/2024 EXAM DESCRIPTION: XR SACRUM and COCCYX REASON FOR STUDY: injury TECHNIQUE: 3 radiographic view(s) of the sacrum . COMPARISON: None FINDINGS: BONES/JOINTS: There is no acute fracture, malalignment or osseous abnormality. The joint spaces are normal. SOFT TISSUES: Within normal limits. THIS IS AN ELECTRONICALLY VERIFIED FINAL REPORT 11/20/2024 9:43 PM - Electronically signed by Tip BAUTISTA: MICHELE Report ID: [id number] Reading Location: [id number] IMPRESSION: No acute osseous abnormality. Garrett [facility] ORDERABLES Final Result * XR KNEE 1 OR 2 VIEWS RIGHT (11/20/2024 9:27 PM MOLD REPAIRER) Anatomical Region Laterality Modality LOWER EXTREMITY, knee Right Digital Ra diography 11/20/2024 9:54 PM MOLD REPAIRER Impressions 11/20/2024 9:56 PM MOLD REPAIRER IMPRESSION: No acute osseous abnormality. Narrative 11/20/2024 9:56 PM MOLD REPAIRER EXAM DESCRIPTION: XR KNEE 1 OR 2 VIEWS RIGHT REASON FOR STUDY: knee pain TECHNIQUE: 2 radiographic view(s) of the right knee . COMPARISON: None FINDINGS: BONES/JOINTS: There is no acute fracture, malalignment or osseous abnormality. Minor degenerative changes are seen throughout the knee. SOFT TISSUES: Within normal limits. THIS IS AN ELECTRONICALLY VERIFIED FINAL REPORT 11/20/2024 9:54 PM - Electronically signed by Tip BAUTISTA: MICHELE Report ID: [id number] Reading Location: [id number] Procedure Note Tip Loza MD - 11/20/2024 EXAM DESCRIPTION: XR KNEE 1 OR 2 VIEWS RIGHT REASON FOR STUDY: knee pain TECHNIQUE: 2 radiographic view(s) of the right knee . COMPARISON: None FINDINGS: BONES/JOINTS: There is no acute fracture, malalignment or osseous abnormality. Minor degenerative changes are seen throughout the knee. SOFT TISSUES: Within normal limits. THIS IS AN ELECTRONICALLY VERIFIED FINAL REPORT 11/20/2024 9:54 PM - Electronically signed by Tip BAUTISTA: MICHELE Report ID: [id number] Reading Location: [id number] IMPRESSION: No acute osseous abnormality. Garrett Long MD IM DI[facility]NO[facility] ORDERABLES Final Result * XR ELBOW MINIMUM 3 VIEWS RIGHT (11/20/2024 9:26 PM MOLD REPAIRER) Anatomical Region Laterality Modality UPPER EXTREMITY, elbow Right Digital R adiography 11/20/2024 9:46 PM MOLD REPAIRER Impressions 11/20/2024 9:48 PM MOLD REPAIRER IMPRESSION: No acute osseous abnormality. Narrative 11/20/2024 9:48 PM MOLD REPAIRER EXAM DESCRIPTION: XR ELBOW MINIMUM 3 VIEWS RIGHT REASON FOR STUDY: elbow pain TECHNIQUE: 3 radiographic view(s) of the right elbow . COMPARISON: None FINDINGS: BONES/JOINTS: There is no acute fracture, malalignment or osseous abnormality. Minor degenerative changes are seen throughout the elbow. SOFT TISSUES: Within normal limits. THIS IS AN ELECTRONICALLY VERIFIED FINAL REPORT 11/20/2024 9:46 PM - Electronically signed by Tip BAUTISTA: MICHELE Report ID: [id number] Reading Location: [id number] Procedure Note Tip Loza MD - 11/20/2024 EXAM DESCRIPTION: XR ELBOW MINIMUM 3 VIEWS RIGHT REASON FOR STUDY: elbow pain TECHNIQUE: 3 radiographic view(s) of the right elbow . COMPARISON: None FINDINGS: BONES/JOINTS: There is no acute fracture, malalignment or osseous abnormality. Minor degenerative changes are seen throughout the elbow. SOFT TISSUES: Within normal limits. THIS IS AN ELECTRONICALLY VERIFIED FINAL REPORT 11/20/2024 9:46 PM - Electronically signed by Tip BAUTISTA: MICHELE Report ID: [id number] Reading Location: [id number] IMPRESSION: No acute osseous abnormality. Garrett Long MD IM DIAGNOSTIC ORDERABLES Final Result * XR FOOT 3 OR MORE VIEWS LEFT (11/20/2024 9:26 PM MOLD REPAIRER) Anatomical Region Laterality Modality LOWER EXTREMITY, foot Left Digital Ra diography 11/20/2024 9:50 PM MOLD REPAIRER Impressions 11/20/2024 9:53 PM MOLD REPAIRER IMPRESSION: No acute osseous abnormality. Narrative 11/20/2024 9:53 PM MOLD REPAIRER EXAM DESCRIPTION: XR FOOT 3 OR MORE VIEWS LEFT REASON FOR STUDY: foot pain TECHNIQUE: 3 radiographic view(s) of the left foot . COMPARISON: None FINDINGS: BONES/JOINTS: There is no acute fracture, malalignment or osseous abnormality. The joint spaces are normal. SOFT TISSUES: Within normal limits. THIS IS AN ELECTRONICALLY VERIFIED FINAL REPORT 11/20/2024 9:50 PM - Electronically signed by Tip BAUTISTA: MICHELE Report ID: [id number] Reading Location: [id number] Procedure Note Tip Loza MD - 11/20/2024 EXAM DESCRIPTION: XR FOOT 3 OR MORE VIEWS LEFT REASON FOR STUDY: foot pain TECHNIQUE: 3 radiographic view(s) of the left foot . COMPARISON: None FINDINGS: BONES/JOINTS: There is no acute fracture, malalignment or osseous abnormality. The joint spaces are normal. SOFT TISSUES: Within normal limits. THIS IS AN ELECTRONICALLY VERIFIED FINAL REPORT 11/20/2024 9:50 PM - Electronically signed by Tip BAUTISTA: MICHELE Report ID: [id number] Reading Location: [id number] IMPRESSION: No acute osseous abnormality. Garrett Long MD IMG DIAGNOSTIC ORDERABLES Final Result from Last 3 Months Care Teams Gang Drill Press Operator Relationship Specialty Start Date End Date Provider, None [place] PCP - General 11/20/24
--- OUTSIDE RECORDS SUMMARY | 2024-12-13 12:22 | XMS_ITS | Encounter Summary ---
Author Organization [facility] Address [address] [place] [address] Care Team Providers Care Car Changer Name Role Phone Shawn Solares MD Primary Care Provider Encounter Details Date Type Department Care Team (Late st Contact Info) Description 03/03/2019 Abstract [facility] CONVERSION [address] [place] [address] , Generic Conversion, Social History Tobacco Use Types Packs/Day Years Used Date Smoking Tobacco: Never Assessed Comments Unknown Sex and Gender Information Value Date Recorded Sex Assigned at Not on file Legal Sex Female 9:20 PM CDT Gender Identity Not on file Sexual Orientation Not on file documented as of this encounter Plan of Treatment Not on file documented as of this encounter Visit Diagnoses Not on filedocumented in this encounter Care Teams Car Changer Relationship Specialty Start Date End Date Shawn Solares MD [address] [place] [phone] PCP - General FAMILY PRACTICE 08/16/19 documented as of this encounter
--- OUTSIDE RECORDS SUMMARY | 2024-12-13 12:40 | XMS_ITS ---
Author Name Interface, [id number] lity Address [place] [address] Organization [facility] Address 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 [facility].[place] [address] CLIA# [id number] 67 04/30 TIBC and perce nt sat w/ iron panel TIBC ug/dL 250.0 450.0 329.2 FINAL [facility].[address] [facility].[place] [address] CLIA# [id number] 67 04/30 TIBC and perce nt sat w/ iron panel Iron, % satur ation % 15.0 50.0 16 FINAL [facility] Serum [facility].[address] [facility] [address] CLIA# [id number] 67 04/30 CBC w/aut o diff with refle x WBC 10^3/u L 4.8 10.8 6.4 FINAL [facility] Whole Blood [facility].[address] [facility] [address] CLIA# [id number] 67 04/30 CBC w/aut o diff with refle x RBC 10^6/u L 4.2 5.4 4.86 FINAL [facility] Whole Blood [facility].[address] [facility] [address] CLIA# [id number] 67 04/30 CBC w/aut o diff with refle x HGB g/dL 12.0 16.0 13.0 FINAL [facility] Whole Blood [facility].[address] [facility] [address] CLIA# [id number] 67 04/30 CBC w/aut o diff with refle x HCT % 37.0 47.0 41.6 FINAL [facility] Whole Blood [facility].[address] [facility] [address] CLIA# [id number] 67 04/30 CBC w/aut o diff with refle x MCV fL 81.0 99.0 85.6 FINAL [facility] Whole Blood [facility].[address] [facility] [facility] [address] CLIA# [id number] 67 04/30 CBC w/aut o diff with refle x MCH pg 27.0 31.0 26.7 Low FINAL [facility] Whole Blood [facility].[address] [facility] [facility] [address] CLIA# [id number] 67 04/30 CBC w/aut o diff with refle x MCHC g/dL 33.0 37.0 31.3 Low FINAL [facility] Whole Blood [facility].[address] [place] [facility] [address] CLIA# [id number] 67 04/30 CBC w/aut o diff with refle x PLT 10^3/u L 130.0 400.0 217 FINAL [facility] Whole Blood [facility].[address] Césaro [facility] [address] CLIA# [id number] 67 04/30 CBC w/aut o diff with refle x MPV fL 9.4 12.3 10.9 FINAL [facility] Whole Blood [facility].[address] [facility] [address] CLIA# [id number] 67 04/30 CBC w/aut o diff with refle x RDW % 10.5 14.5 18.4 High FINAL [facility] Whole Blood [facility].[address] [facility].[place] [address] CLIA# [id number] 67 04/30 CBC w/aut o diff with refle x Paul % % 40.0 77.0 69.8 FINAL [facility] Blood [facility].[address] [facility] [address] CLIA# [id number] 67 04/30 CBC w/aut o diff with refle x Paul # (ANC) 10^3/u L 1.5 6.5 4.48 FINAL [facility] Whole Blood [facility].[address] [facility] [address] CLIA# [id number] 67 04/30 CBC w/aut o diff with refle x IG % % 0.0 0.5 0.3 FINAL [facility] Whole Blood [facility].[address] [facility] [address] CLIA# [id number] 67 04/30 CBC w/aut o diff with refle x IG # 10^3/u L 0.0 0.03 0.02 FINAL [facility] Whole Blood [facility].[address] [address] CLIA# [id number] 67 04/30 CBC w/aut o diff with refle x LY % % 15.0 41.0 20.6 FINAL [facility] Whole Blood [facility].[address] [place] [address] CLIA# [id number] 67 04/30 CBC w/aut o diff with refle x LY # 10^3/u L 1.2 3.4 1.32 FINAL [facility] Whole Blood [facility].[address] [facility] [facility] [place] [address] CLIA# [id number] 67 04/30 CBC w/aut o diff with refle x MO % % 3.0 11.0 6.9 FINAL [facility] Whole Blood [facility].[address] [facility] [facility] [address] CLIA# [id number] 67 04/30 CBC w/aut o diff with refle x MO # 10^3/u L 0.0 1.0 0.44 FINAL [facility] Whole Blood [facility].[address] [facility] [facility] [place] [address] CLIA# [id number] 67 04/30 CBC w/aut o diff with refle x EO % % 0.0 3.0 1.9 FINAL [facility] Whole Blood [facility].[address] [facility] [facility] [place] [address] CLIA# [id number] 67 04/30 CBC w/aut o diff with refle x EO # 10^3/u L 0.0 0.3 0.12 FINAL [facility] Whole Blood [facility].[address] [address] CLIA# [id number] 67 04/30 CBC w/aut o diff with refle x BA % % 0.0 1.0 0.5 FINAL [facility] Whole Blood [facility].[address] [address] CLIA# [id number] 67 04/30 CBC w/aut o diff with refle x BA # 10^3/u L 0.0 0.2 0.03 FINAL [facility] Blood [facility].[address] [address] CLIA# [id number] 67 04/30 CBC w/aut o diff with refle x NRBC, % % 0.0 0.2 0.0 FINAL [facility] Blood [facility].[address] [address] CLIA# [id number] 67 04/30 CBC w/aut o diff with refle x NRBC, absol [place], x 10^3/ uL 10^3/u L 0.0 0.01 0.00 FINAL [facility] Whole Blood [facility].[address] [address] CLIA# [id number] 67 04/30 Monica tin panel Monica tin ng/mL 10.0 291.0 87.2 FINAL [facility].[address] [address] CLIA# [id number] 67 09/17 Monica tin panel Monica tin ng/mL 10.0 291.0 43.8 FINAL [facility].[address] [address] CLIA# [id number] 67 09/17 CBC w/aut o diff with refle x WBC 10^3/u L 4.8 10.8 5.4 FINAL [facility] Whole Blood [facility].[address] [address] CLIA# [id number] 67 09/17 CBC w/aut o diff with refle x RBC 10^6/u L 4.2 5.4 4.33 FINAL [facility] Whole Blood [facility].[address] [address] CLIA# [id number] 67 12/23 /2024 CBC w/aut o diff with refle x HGB g/dL 12.0 16.0 12.6 FINAL [facility] Whole Blood [facility].[address] [address] CLIA# [id number] 67 09/17 CBC w/aut o diff with refle x HCT % 37.0 47.0 38.9 FINAL [facility] Whole Blood [facility].[address] [address] CLIA# [id number] 67 09/17 CBC w/aut o diff with refle x MCV fL 81.0 99.0 89.8 FINAL [facility] Whole Blood [facility].[address] [address] CLIA# [id number] 67 09/17 CBC w/aut o diff with refle x MCH pg 27.0 31.0 29.1 FINAL [facility] Whole Blood [facility].[address] [address] CLIA# [id number] 67 09/17 CBC w/aut o diff with refle x MCHC g/dL 33.0 37.0 32.4 Low [facility].[address] [address] CLIA# [id number] 67 09/17 CBC w/aut o diff with refle x PLT 10^3/u L 130.0 400.0 180 FINAL [facility] Whole Blood [facility].[address] [address] CLIA# [id number] 67 09/17 CBC w/aut o diff with refle x MPV fL 9.4 12.3 11.3 FINAL [facility] Whole Blood [facility].[address] [address] CLIA# [id number] 67 09/17 CBC w/aut o diff with refle x RDW % 10.5 14.5 13.7 FINAL [facility] Whole Blood [facility].[address] [address] CLIA# [id number] 67 09/17 CBC w/aut o diff with refle x Paul % % 40.0 77.0 64.9 FINAL [facility] Whole Blood [facility].[address] [address] CLIA# [id number] 67 09/17 CBC w/aut o diff with refle x Paul # (ANC) 10^3/u L 1.5 6.5 3.48 FINAL [facility] Whole Blood [facility].[address] [address] CLIA# [id number] 67 09/17 CBC w/aut o diff with refle x IG % % 0.0 0.5 0.7 High FINAL [facility] Whole Blood [facility].[address] [address] CLIA# [id number] 67 09/17 CBC w/aut o diff with refle x IG # 10^3/u L 0.0 0.03 0.04 High FINAL [facility] Whole Blood [facility].[address] [address] CLIA# [id number] 67 09/17 CBC w/aut o diff with refle x LY % % 15.0 41.0 25.4 FINAL [facility] Whole Blood [facility].[address] [address] CLIA# [id number] 67 09/17 CBC w/aut o diff with refle x LY # 10^3/u L 1.2 3.4 1.36 FINAL [facility] Whole Blood [facility].[address] [address] CLIA# [id number] 67 09/17 CBC w/aut o diff with refle x MO % % 3.0 11.0 7.3 FINAL [facility] Whole Blood [facility].[address] [address] CLIA# [id number] 67 09/17 CBC w/aut o diff with refle x MO # 10^3/u L 0.0 1.0 0.39 FINAL [facility] Whole Blood [facility].[address] [address] CLIA# [id number] 67 09/17 CBC w/aut o diff with refle x EO % % 0.0 3.0 1.5 FINAL [facility] Whole Blood [facility].[address] [address] CLIA# [id number] 67 09/17 CBC w/aut o diff with refle x EO # 10^3/u L 0.0 0.3 0.08 FINAL [facility] Whole Blood [facility].[address] [address] CLIA# [id number] 67 09/17 CBC w/aut o diff with refle x BA % % 0.0 1.0 0.2 FINAL [facility] Whole Blood [facility].[address] [address] CLIA# [id number] 67 09/17 CBC w/aut o diff with refle x BA # 10^3/u L 0.0 0.2 0.01 FINAL [facility] Whole Blood [facility].[address] [address] CLIA# [id number] 67 09/17 CBC w/aut o diff with refle x NRBC, % % 0.0 0.2 0.0 FINAL [facility] Whole Blood [facility].[address] [address] CLIA# [id number] 67 09/17 CBC w/aut o diff with refle x NRBC, absol [place], x 10^3/ uL 10^3/u L 0.0 0.01 0.00 FINAL [facility] Whole Blood [facility].[address] [address] CLIA# [id number] 67 09/17 TIBC and perce nt sat w/ iron panel Iron ug/dL 50.0 170.0 41.5 Low FINAL [facility] Serum [facility].[address] [address] CLIA# [id number] 67 09/17 TIBC and perce nt sat w/ iron panel TIBC ug/dL 250.0 450.0 297.6 FINAL [facility] Serum [facility].[address] [address] CLIA# [id number] 67 09/17 TIBC and perce nt sat w/ iron panel Iron, % satur ation % 15.0 50.0 14 Low FINAL [facility] Serum [facility].[address] [address] CLIA# [id number] 67 11/06 Vitam in A (Reti nol) panel Vitam in A, ug/dL mcg/dL 38.0 98.0 69 (Note)C aby Chem Vol. 34.No.8. [id number] in supplemen tation within 24 hours prior to blooddraw may affect the accuracy of results.T his test was developed and its analytica l performan cecharact eristics have been determine d by [employer]. It has not been cleared or approved by theA. This assay has been validated pursuant to the CLIAregul ations and is used for clinical purposes. FINAL [facility] Serum [facility].[address] [address] [address] [address] 11/06 Vitam in E panel Alpha -toco phero l (Vit E) mg/L 5.7 19.9 13.3 Levels of alpha-edgar opherol <5 mg/L are consisten t with Vitamin E deficienc y inadults. FINAL [facility].[address] [address] [address] [facility] [place] [address] 11/06 Vitam in E panel Beta- gamma tocop herol mg/L 1.6 (Note)Vit alcaraz supplemen tation within 24 hours prior to blooddraw may affect the accuracy of results.T his test was developed and its analytica l performan cecharact eristics have been determine d by [employer]. It has not been cleared or approved by theA. This assay has been validated pursuant to the [facility] ations and is used for clinical purposes. FINAL [facility] Serum [facility].[address] [address] [address] [address] 11/06 CBC w/aut o diff with refle x WBC 10^3/u L 4.8 10.8 6.4 FINAL [facility] Whole [facility].[address] [address] CLIA# [id number] 67 11/06 CBC w/aut o diff with refle x RBC 10^6/u L 4.2 5.4 4.67 FINAL [facility] Whole Blood [facility].[address] [address] CLIA# [id number] 67 11/06 CBC w/aut o diff with refle x HGB g/dL 12.0 16.0 13.7 FINAL [facility].[address] [address] CLIA# [id number] 67 11/06 CBC w/aut o diff with refle x HCT % 37.0 47.0 41.6 FINAL [facility].[address] [address] CLIA# [id number] 67 11/06 CBC w/aut o diff with refle x MCV fL 81.0 99.0 89.1 FINAL [facility].[address] [address] CLIA# [id number] 67 11/06 CBC w/aut o diff with refle x MCH pg 27.0 31.0 29.3 FINAL [facility] Whole [facility].[address] [address] CLIA# [id number] 67 11/06 CBC w/aut o diff with refle x MCHC g/dL 33.0 37.0 32.9 Low FINAL [facility] Whole Blood [facility].[address] [address] CLIA# [id number] 67 11/06 CBC w/aut o diff with refle x PLT 10^3/u L 130.0 400.0 237 FINAL [facility] Whole Blood [facility].[address] [address] CLIA# [id number] 67 11/06 CBC w/aut o diff with refle x MPV fL 9.4 12.3 11.3 FINAL [facility] Whole Blood [facility].[address] [address] CLIA# [id number] 67 11/06 CBC w/aut o diff with refle x RDW % 10.5 14.5 14.6 High FINAL [facility] Whole Blood [facility].[address] [address] CLIA# [id number] 67 11/06 CBC w/aut o diff with refle x Paul % % 40.0 77.0 68.6 FINAL [facility] Whole Blood [facility].[address] [address] CLIA# [id number] 67 11/06 CBC w/aut o diff with refle x Paul # (ANC) 10^3/u L 1.5 6.5 4.40 FINAL [facility] Whole Blood [facility].[address] [address] CLIA# [id number] 67 11/06 CBC w/aut o diff with refle x IG % % 0.0 0.5 0.3 FINAL [facility] Whole Blood [facility].[address] [address] CLIA# [id number] 67 11/06 CBC w/aut o diff with refle x IG # 10^3/u L 0.0 0.03 0.02 FINAL [facility] Whole Blood [facility].[address] [address] CLIA# [id number] 67 11/06 CBC w/aut o diff with refle x LY % % 15.0 41.0 22.7 FINAL [facility] Whole Blood [facility].[address] [address] CLIA# [id number] 67 11/06 CBC w/aut o diff with refle x LY # 10^3/u L 1.2 3.4 1.46 FINAL [facility] Whole Blood [facility].[address] [address] CLIA# [id number] 67 11/06 CBC w/aut o diff with refle x MO % % 3.0 11.0 6.7 FINAL [facility] Whole Blood [facility].[address] [address] CLIA# [id number] 67 11/06 CBC w/aut o diff with refle x MO # 10^3/u L 0.0 1.0 0.43 FINAL [facility] Whole Blood [facility].[address] [address] CLIA# [id number] 67 11/06 CBC w/aut o diff with refle x EO % % 0.0 3.0 1.4 FINAL [facility] Whole Blood [facility].[address] [address] CLIA# [id number] 67 11/06 CBC w/aut o diff with refle x EO # 10^3/u L 0.0 0.3 0.09 FINAL [facility] Whole Blood [facility].[address] [address] CLIA# [id number] 67 11/06 CBC w/aut o diff with refle x BA % % 0.0 1.0 0.3 FINAL [facility] Whole Blood [facility].[address] [address] CLIA# [id number] 67 11/06 CBC w/aut o diff with refle x BA # 10^3/u L 0.0 0.2 0.02 FINAL [facility] Whole Blood [facility].[address] [address] CLIA# [id number] 67 11/06 CBC w/aut o diff with refle x NRBC, % % 0.0 0.2 0.0 FINAL [facility] Whole Blood [facility].[address] [address] CLIA# [id number] 67 11/06 CBC w/aut o diff with refle x NRBC, absol [place], x 10^3/ uL 10^3/u L 0.0 0.01 0.00 FINAL [facility] Whole Blood [facility].[address] [address] CLIA# [id number] 67 11/06 TIBC and perce nt sat w/ iron panel Iron ug/dL 50.0 170.0 62.9 FINAL [facility] Serum [facility].[address] [address] CLIA# [id number] 67 11/06 TIBC and perce nt sat w/ iron panel TIBC ug/dL 250.0 450.0 382.5 FINAL [facility] Serum [facility].[address] [address] CLIA# [id number] 67 11/06 TIBC and perce nt sat w/ iron panel Iron, % satur ation % 15.0 50.0 16 FINAL [facility] Serum [facility].[address] [address] CLIA# [id number] 67 11/06 Folat e panel Folat e, serum ng/mL 8.6 58.9 4.09 Low FINAL [facility] Serum [facility].[address] [address] CLIA# [id number] 67 11/06 Monica tin panel Monica tin ng/mL 10.0 291.0 42.1 FINAL [facility] Serum [facility].[address] [address] CLIA# [id number] 67 11/06 Vitam in B12 panel Vitam in B12 pg/mL 211.0 911.0 288 FINAL [facility] Serum [facility].[address] [address] CLIA# [id number] 11/06 Vitam in B6 panel Vitam in B6, ng/mL ng/mL 2.1 21.7 7.1 (Note)Vit alcaraz supplemen tation within 24 hours prior to blooddraw may affect the accuracy of results.T his test was developed and its analytica l performan cecharact eristics have been determine d by [employer]. It has not been cleared or approved by theFDA. This assay has been validated pursuant to the [employer] ations and is used for clinical purposes. FINAL [facility] Plasma [facility].[address] [place] [address].[facility] [address] 11/06 Vitam in B1 panel Vitam in B1, nmol/ L nmol/L 78.0 185.0 82 (Note)Vit alcaraz supplemen tation within 24 hours prior to blooddraw may affect the accuracy of the results.T his test was developed and its analytica l performan cecharact eristics have been determine d by [employer]. It has not been cleared or approved by FDA.This assay has been validated pursuant to the CLIAregul ations and is used for clinical purposes. FINAL [facility] Whole Blood-Lig ht Protected [facility].[address] [place] [address] 12.[facility] [address] 11/06 Vitam in D monit oring panel Vitam in D, 25-hy droxy ng/mL 30.0 100.0 19 Low (Note)Vit alcaraz D Status Adult 25-OH Vitamin D-------- --------- --------- --------- --------- Deficienc y <20 ng/mLInsu fficiency 20 - 29 ng/mLOpti mal >or = 30 ng/mLFor 25-OH Vitamin D testing on patients onD2-supp lementati on and patients for whom quantitat ion of D2and D3 fractions is required, the Powered by Peak[employer] reD(TM) 25-OH VIT D, (D2,D3),L C/MS/MS is recommend ed: order code [id number] (patients >2yrs). FINAL [employer] Serum [facility].[address] 12[address] [address] 11/06 Coppe r panel Coppe r, serum mcg/dL 70.0 175.0 151 (Note)Thi s test was developed and its analytica l performan cecharact eristics have been determine d by [employer].It has not been cleared or approved by the FDA. This assayhas been validated pursuant to the CLIA regulatio ns and isused for clinical purposes. FINAL [facility].2 [address] [address] [address].[facility] [address] 11/06 Vitam in K panel Vitam in K1 pg/mL 130.0 1500.0 728 (Note)Thi s test was developed and its analytica l performan cecharact eristics have been determine d by [employer] [place]. It hasnot been cleared or approved by the U.S. Food and DrugAdmin istration . This assay has been validated pursuantt o the CLIA regulatio ns and is used for clinicalp urposes.T est Performed at:[facility] /[facility] [address] [place], [place] 8 Taqueria Early MD, PhD FINAL [facility] Plasma-[facility] Protected 11/06 Vitam in C panel Vitam in C, serum mg/dL 0.3 2.7 <0.1 Low (Note)Thi s test was developed and its analytica lperforma nce character istics have been determine dby [place].It has not been cleared or approved by the FDA. Thisassay has been validated pursuant to the CLIAregul ations and is used for clinical purposes. Test Performed at:[facility] [address] [facility] [place] , [place] 8 Taqueria Early MD, PhD FINAL [facility] Serum 11/06 Zinc panel Zinc mcg/dL 60.0 130.0 67 (Note)Thi s test was developed and its analytica l performan cecharact eristics have been determine d by [employer] .It has not been cleared or approved by the FDA. Thisassay has been validated pursuant to the CLIA regulatio nsand is used for clinical purposes. FINAL [facility] Plasma [facility].2 [address] [address] [address].[facility] [address] Medications Date Name Route Dose Frequency Instructions [...] one tablet by mouth once daily active Trazodone Oral 1-3 tablets by mouth once nightly for sleep active Sertraline Oral two tablets by mouth once daily active Ropinirole Oral one tablet by mouth [...] Notes Section * HemOnc Consult {Aroldo} - [facility] [address] [place] [address] P: F: PATIENT: ISHAN PHOENIX : 1965 [...] recreational drug use., Family History: Mother ??diabetes, ID Sister??cervical cancer Maternal grandfather?? diabetes, ID Vital Signs: Height: None Today; Weight: None [...] have provided written materials about medicalpowers of transactional attorney and directives to physicians. Impression Report Plan: [...] 15:17 CDT * Nurse Note for: 22-MAR-24 [facility] Nurse Note Print Location: Unknown Date/Time Printed: 12/13/2024 12:39 ([facility]) Patient: ISHAN PHOENIX Sex: Female : 1965 [...] mg Amount in mL: 0.5 Pharmacy dispense: [facility] [facility]: [id number] Dispense/Waste: 25/0 mg Given Dose/Discard: 25/0 mg [...] mg Amount in mL: 19.5 Pharmacy dispense: [facility]: [id number] Dispense/Waste: 975/0 mg Given Dose/Discard: 975/0 mg Start Time: 10:00, Entered By: Domonique Goode RN, Stop Time: 13:45, Entered By: Domonique Goode RN Admix Fluid: 0.9 % sodium chloride, Admix Fluid Volume: 250mL Double Checked By: Domonique Goode RN on 03/22/2024 09:54 and Kasia Valles RN Sr on 03/22/2024 09:54 * Nurse Note for: 05-MAR-24 [facility] Nurse Note Print Location: Unknown Date/Time Printed: 12/13/2024 12:39 ([facility]) Patient: ISHAN PHOENIX Sex: Female : 1965 Date of Service: 03/05/2024 Allergies : promethazine, metformin, glimepiride, Phenergan Vital Signs : Time: 14:09, no equipment to measure. Pain Scale: 6 knees and legs, RLS. Entered by Shu Cohen VC, MA System Manager 03/05/2024 14:10 Patient Assessment : Positive results Assessment : Alert, oriented with appropriate behavior, Gait Changes-balance. Complains of Pain-6 (knees and legs, RLS), Fatigue, Other-memory. Entered By Shu Cohen VC, MA System Manager on 14:13
--- OUTSIDE RECORDS SUMMARY | 2024-12-13 12:40 | XMS_ITS | CCD ---
Author Name Interface, [id number] Address [place] [address] [facility] Address [place] [address] Care Team Providers Care Private Duty Nurse Name Role Phone Andrew Moe Unavailable Unavailable Allergies and Adverse Reactions Care Plan Reason for Visit Encounters Immunizations Diagnostic Results Medications Administered Medications Problems Procedures Social History Vital Signs
--- OUTSIDE RECORDS SUMMARY | 2024-12-13 12:40 | XMS_ITS ---
Author Name Interface, T2Cqbeptn lity Address [place] [address] Organization [facility] Address [place] [address] Care Team Providers Care Bucket Wash Operator Name Role Phone Kuldip Pereira Unavailable Unavailable [...] 03/22/2024 APPOINTMENT BLOSSOM D50.8 03/05/2024 APPOINTMENT BLOSSOM ENRICHMENT DIRECTOR ANEMIA 03/05/2024 APPOINTMENT BLOSSOM ENRICHMENT DIRECTOR ANEMIA 04/30/2024 LABORDER CBC w/auto diff with [...] panel Iron ug/dL 50.0 170.0 52.0 FINAL [facility].[address] [facility].[place] [address] CLIA# [id number] 67 04/30 TIBC and perce nt sat w/ iron panel TIBC ug/dL 250.0 450.0 329.2 FINAL [facility].[address] [facility].[place] [address] CLIA# [id number] 67 04/30 TIBC and perce nt sat w/ iron panel Iron, % satur ation % 15.0 50.0 16 FINAL [facility] Serum [facility].[address] [facility] [address] CLIA# [id number] 67 04/30 CBC w/aut o diff with refle x WBC 10^3/u L 4.8 10.8 6.4 FINAL [facility] Whole Blood [facility].[address] [facility] [address] CLIA# [id number] 67 04/30 CBC w/aut o diff with refle x RBC 10^6/u L 4.2 5.4 4.86 FINAL [facility] Whole Blood [facility].[address] [facility] [address] CLIA# [id number] 67 04/30 CBC w/aut o diff with refle x HGB g/dL 12.0 16.0 13.0 FINAL [facility] Whole Blood [facility].[address] [facility] [address] CLIA# [id number] 67 04/30 CBC w/aut o diff with refle x HCT % 37.0 47.0 41.6 FINAL [facility] Whole Blood [facility].[address] [facility] [address] CLIA# [id number] 67 04/30 CBC w/aut o diff with refle x MCV fL 81.0 99.0 85.6 FINAL [facility] Whole Blood [facility].[address] [facility] [address] CLIA# [id number] 67 04/30 CBC w/aut o diff with refle x MCH pg 27.0 31.0 26.7 Low FINAL [facility] Whole Blood [facility].[address] [facility] [address] CLIA# [id number] 67 04/30 CBC w/aut o diff with refle x MCHC g/dL 33.0 37.0 31.3 Low FINAL [facility] Whole Blood [facility].[address] [facility] [address] CLIA# [id number] 67 04/30 CBC w/aut o diff with refle x PLT 10^3/u L 130.0 400.0 217 FINAL [facility] Whole Blood [facility].[address] [facility] [address] CLIA# [id number] 67 04/30 CBC w/aut o diff with refle x MPV fL 9.4 12.3 10.9 FINAL [facility] Whole Blood [facility].[address] [facility].[place] [address] CLIA# [id number] 67 04/30 CBC w/aut o diff with refle x RDW % 10.5 14.5 18.4 High FINAL [facility] Whole Blood [facility].[address] [facility] [address] CLIA# [id number] 67 04/30 CBC w/aut o diff with refle x Paul % % 40.0 77.0 69.8 FINAL [facility] Blood [facility].[address] [facility] [address] CLIA# [id number] 67 04/30 CBC w/aut o diff with refle x Paul # (ANC) 10^3/u L 1.5 6.5 4.48 FINAL [facility] Whole Blood [facility].[address] [facility] [place] [facility] [place] [address] CLIA# [id number] 67 04/30 CBC w/aut o diff with refle x IG % % 0.0 0.5 0.3 FINAL [facility] Whole Blood [facility].[address] [facility] [address] CLIA# [id number] 67 04/30 CBC w/aut o diff with refle x IG # 10^3/u L 0.0 0.03 0.02 FINAL [facility] Whole Blood [facility].[address] [address] CLIA# [id number] 67 04/30 CBC w/aut o diff with refle x LY % % 15.0 41.0 20.6 FINAL [facility] Whole Blood [facility].[address] [address] CLIA# [id number] 67 04/30 CBC w/aut o diff with refle x LY # 10^3/u L 1.2 3.4 1.32 FINAL [facility] Whole Blood [facility].[address] [facility] [address] CLIA# [id number] 67 04/30 CBC w/aut o diff with refle x MO % % 3.0 11.0 6.9 FINAL [facility] Whole Blood [facility].[address] [facility] [address] CLIA# [id number] 67 04/30 CBC w/aut o diff with refle x MO # 10^3/u L 0.0 1.0 0.44 FINAL [facility] Whole Blood [facility].[address] [facility] [address] CLIA# [id number] 67 04/30 CBC w/aut o diff with refle x EO % % 0.0 3.0 1.9 FINAL [facility] Whole Blood [facility].[address] [facility] [address] CLIA# [id number] 67 04/30 CBC w/aut o diff with refle x EO # 10^3/u L 0.0 0.3 0.12 FINAL [facility] Whole Blood [facility].[address] [address] CLIA# [id number] 67 04/30 CBC w/aut o diff with refle x BA % % 0.0 1.0 0.5 FINAL [facility] Whole Blood [facility].[address] [address] CLIA# [id number] 67 04/30 CBC w/aut o diff with refle x BA # 10^3/u L 0.0 0.2 0.03 FINAL [facility] Blood [facility].[address] [address] CLIA# [id number] 67 04/30 CBC w/aut o diff with refle x NRBC, % % 0.0 0.2 0.0 FINAL [facility] Blood [facility].[address] [address] CLIA# [id number] 67 04/30 CBC w/aut o diff with refle x NRBC, absol timbi-sha shoshone, x 10^3/ uL 10^3/u L 0.0 0.01 0.00 FINAL [facility] Whole Blood [facility].[address] [address] CLIA# [id number] 67 04/30 Monica tin panel Monica tin ng/mL 10.0 291.0 87.2 FINAL [facility].[address] [address] CLIA# [id number] 67 09/17 Monica tin panel Monica tin ng/mL 10.0 291.0 43.8 FINAL [facility].[address] [address] CLIA# [id number] 67 09/17 CBC w/aut o diff with refle x WBC 10^3/u L 4.8 10.8 5.4 FINAL [facility] Whole Blood [facility].[address] [address] CLIA# [id number] 67 09/17 CBC w/aut o diff with refle x RBC 10^6/u L 4.2 5.4 4.33 FINAL [facility] Whole Blood [facility].[address] [address] CLIA# [id number] 67 12/23 /2024 CBC w/aut o diff with refle x HGB g/dL 12.0 16.0 12.6 FINAL [facility] Whole Blood [facility].[address] [address] CLIA# [id number] 67 09/17 CBC w/aut o diff with refle x HCT % 37.0 47.0 38.9 FINAL [facility] Whole Blood [facility].[address] [address] CLIA# [id number] 67 09/17 CBC w/aut o diff with refle x MCV fL 81.0 99.0 89.8 FINAL [facility] Whole Blood [facility].[address] [address] CLIA# [id number] 67 09/17 CBC w/aut o diff with refle x MCH pg 27.0 31.0 29.1 FINAL [facility] Whole Blood [facility].[address] [address] CLIA# [id number] 67 09/17 CBC w/aut o diff with refle x MCHC g/dL 33.0 37.0 32.4 Low [facility].[address] [address] CLIA# [id number] 67 09/17 CBC w/aut o diff with refle x PLT 10^3/u L 130.0 400.0 180 FINAL [facility] Whole Blood [facility].[address] [address] CLIA# [id number] 67 09/17 CBC w/aut o diff with refle x MPV fL 9.4 12.3 11.3 FINAL [facility] Whole Blood [facility].[address] [address] CLIA# [id number] 67 09/17 CBC w/aut o diff with refle x RDW % 10.5 14.5 13.7 FINAL [facility] Whole Blood [facility].[address] [address] CLIA# [id number] 67 09/17 CBC w/aut o diff with refle x Paul % % 40.0 77.0 64.9 FINAL [facility] Whole Blood [facility].[address] [address] CLIA# [id number] 67 09/17 CBC w/aut o diff with refle x Paul # (ANC) 10^3/u L 1.5 6.5 3.48 FINAL [facility] Whole Blood [facility].[address] [address] CLIA# [id number] 67 09/17 CBC w/aut o diff with refle x IG % % 0.0 0.5 0.7 High FINAL [facility] Whole Blood [facility].[address] [address] CLIA# [id number] 67 09/17 CBC w/aut o diff with refle x IG # 10^3/u L 0.0 0.03 0.04 High FINAL [facility] Whole Blood [facility].[address] [address] CLIA# [id number] 67 09/17 CBC w/aut o diff with refle x LY % % 15.0 41.0 25.4 FINAL [facility] Whole Blood [facility].[address] [address] CLIA# [id number] 67 09/17 CBC w/aut o diff with refle x LY # 10^3/u L 1.2 3.4 1.36 FINAL [facility] Whole Blood [facility].[address] [address] CLIA# [id number] 67 09/17 CBC w/aut o diff with refle x MO % % 3.0 11.0 7.3 FINAL [facility] Whole Blood [facility].[address] [address] CLIA# [id number] 67 09/17 CBC w/aut o diff with refle x MO # 10^3/u L 0.0 1.0 0.39 FINAL [facility] Whole Blood [facility].[address] [address] CLIA# [id number] 67 09/17 CBC w/aut o diff with refle x EO % % 0.0 3.0 1.5 FINAL [facility] Whole Blood [facility].[address] [address] CLIA# [id number] 67 09/17 CBC w/aut o diff with refle x EO # 10^3/u L 0.0 0.3 0.08 FINAL [facility] Whole Blood [facility].[address] [place] [address] CLIA# [id number] 67 09/17 CBC w/aut o diff with refle x BA % % 0.0 1.0 0.2 FINAL [facility] Whole Blood [facility].[address] [address] CLIA# [id number] 67 09/17 CBC w/aut o diff with refle x BA # 10^3/u L 0.0 0.2 0.01 FINAL [facility] Whole Blood [facility].[address] [address] CLIA# [id number] 67 09/17 CBC w/aut o diff with refle x NRBC, % % 0.0 0.2 0.0 FINAL [facility] Whole Blood [facility].[address] [place] [address] CLIA# [id number] 67 09/17 CBC w/aut o diff with refle x NRBC, absol timbi[place], x 10^3/ uL 10^3/u L 0.0 0.01 0.00 FINAL [facility] Whole Blood [facility].[address] [address] CLIA# [id number] 67 09/17 TIBC and perce nt sat w/ iron panel Iron ug/dL 50.0 170.0 41.5 Low FINAL [facility] Serum [facility].[address] [address] CLIA# [id number] 67 09/17 TIBC and perce nt sat w/ iron panel TIBC ug/dL 250.0 450.0 297.6 FINAL [facility] Serum [facility].[address] [address] CLIA# [id number] 67 09/17 TIBC and perce nt sat w/ iron panel Iron, % satur ation % 15.0 50.0 14 Low FINAL [facility] Serum [facility].[address] [address] CLIA# [id number] 67 11/06 Vitam in A (Reti nol) panel Vitam in A, ug/dL mcg/dL 38.0 98.0 69 (Note)C aby Chem Vol. 34.No.8. [id number] in supplemen tation within 24 hours prior to blooddraw may affect the accuracy of results.T his test was developed and its analytica l performan cecharact eristics have been determine d by [employer]. It has not been cleared or approved by theA. This assay has been validated pursuant to the CLIAregul ations and is used for clinical purposes. FINAL [facility].[address] [address] [address] [address] 11/06 Vitam in E panel Alpha -toco phero l (Vit E) mg/L 5.7 19.9 13.3 Levels of alpha-edgar opherol <5 mg/L are consisten t with Vitamin E deficienc y inadults. FINAL [facility] [address] [address] [address] 11/06 Vitam in E panel Beta- gamma tocop herol mg/L 1.6 (Note)Vit alcaraz supplemen tation within 24 hours prior to blooddraw may affect the accuracy of results.T his test was developed and its analytica l performan cecharact eristics have been determine d by [employer]. It has not been cleared or approved by theA. This assay has been validated pursuant to the [facility] ations and is used for clinical purposes. FINAL [facility] Serum [facility].[address] [address] [address] [address] 11/06 CBC w/aut o diff with refle x WBC 10^3/u L 4.8 10.8 6.4 FINAL [facility].[address] [address] CLIA# [id number] 67 11/06 CBC w/aut o diff with refle x RBC 10^6/u L 4.2 5.4 4.67 FINAL [facility] Whole Blood [facility].[address] [address] CLIA# [id number] 67 11/06 CBC w/aut o diff with refle x HGB g/dL 12.0 16.0 13.7 FINAL [facility].[address] [address] CLIA# [id number] 67 11/06 CBC w/aut o diff with refle x HCT % 37.0 47.0 41.6 FINAL [facility].[address] [address] CLIA# [id number] 67 11/06 CBC w/aut o diff with refle x MCV fL 81.0 99.0 89.1 FINAL [facility].[address] [address] CLIA# [id number] 67 11/06 CBC w/aut o diff with refle x MCH pg 27.0 31.0 29.3 FINAL [facility].[address] [address] CLIA# [id number] 67 11/06 CBC w/aut o diff with refle x MCHC g/dL 33.0 37.0 32.9 Low FINAL [facility] Whole Blood [facility].[address] [address] CLIA# [id number] 67 11/06 CBC w/aut o diff with refle x PLT 10^3/u L 130.0 400.0 237 FINAL [facility] Whole Blood [facility].[address] [place] [address] CLIA# [id number] 67 11/06 CBC w/aut o diff with refle x MPV fL 9.4 12.3 11.3 FINAL [facility] Whole Blood [facility].[address] [place] [address] CLIA# [id number] 67 11/06 CBC w/aut o diff with refle x RDW % 10.5 14.5 14.6 High FINAL [facility] Whole Blood [facility].[address] [place] [address] CLIA# [id number] 67 11/06 CBC w/aut o diff with refle x Paul % % 40.0 77.0 68.6 FINAL [facility] Whole Blood [facility].[address] [address] CLIA# [id number] 67 11/06 CBC w/aut o diff with refle x Paul # (ANC) 10^3/u L 1.5 6.5 4.40 FINAL [facility] Whole Blood [facility].[address] [address] CLIA# [id number] 67 11/06 CBC w/aut o diff with refle x IG % % 0.0 0.5 0.3 FINAL [facility] Whole Blood [facility].[address] [address] CLIA# [id number] 67 11/06 CBC w/aut o diff with refle x IG # 10^3/u L 0.0 0.03 0.02 FINAL [facility] Whole Blood [facility].[address] [address] CLIA# [id number] 67 11/06 CBC w/aut o diff with refle x LY % % 15.0 41.0 22.7 FINAL [facility] Whole Blood [facility].[address] [address] CLIA# [id number] 67 11/06 CBC w/aut o diff with refle x LY # 10^3/u L 1.2 3.4 1.46 FINAL [facility] Whole Blood [facility].[address] [address] CLIA# [id number] 67 11/06 CBC w/aut o diff with refle x MO % % 3.0 11.0 6.7 FINAL [facility] Whole Blood [facility].[address] [address] CLIA# [id number] 67 11/06 CBC w/aut o diff with refle x MO # 10^3/u L 0.0 1.0 0.43 FINAL [facility] Whole Blood [facility].[address] [address] CLIA# [id number] 67 11/06 CBC w/aut o diff with refle x EO % % 0.0 3.0 1.4 FINAL [facility] Whole Blood [facility].[address] [address] CLIA# [id number] 67 11/06 CBC w/aut o diff with refle x EO # 10^3/u L 0.0 0.3 0.09 FINAL [facility] Whole Blood [facility].[address] [address] CLIA# [id number] 67 11/06 CBC w/aut o diff with refle x BA % % 0.0 1.0 0.3 FINAL [facility] Whole Blood [facility].[address] [address] CLIA# [id number] 67 11/06 CBC w/aut o diff with refle x BA # 10^3/u L 0.0 0.2 0.02 FINAL [facility] Whole Blood [facility].[address] [place] [address] CLIA# [id number] 67 11/06 CBC w/aut o diff with refle x NRBC, % % 0.0 0.2 0.0 FINAL [facility] Whole Blood [facility].[address] [address] CLIA# [id number] 67 11/06 CBC w/aut o diff with refle x NRBC, absol timbi-sha [place], x 10^3/ uL 10^3/u L 0.0 0.01 0.00 FINAL [facility] Whole Blood [facility].[address] [address] CLIA# [id number] 67 11/06 TIBC and perce nt sat w/ iron panel Iron ug/dL 50.0 170.0 62.9 FINAL [facility] Serum [facility].[address] [address] CLIA# [id number] 67 11/06 TIBC and perce nt sat w/ iron panel TIBC ug/dL 250.0 450.0 382.5 FINAL [facility] Serum [facility].[address] [place] [address] CLIA# [id number] 67 11/06 TIBC and perce nt sat w/ iron panel Iron, % satur ation % 15.0 50.0 16 FINAL [facility] Serum [facility].[address] [address] CLIA# [id number] 67 11/06 Folat e panel Folat e, serum ng/mL 8.6 58.9 4.09 Low FINAL [facility] Serum [facility] [place].[address] [address] CLIA# [id number] 67 11/06 Monica tin panel Monica tin ng/mL 10.0 291.0 42.1 FINAL [facility].[address] [address] CLIA# [id number] 67 11/06 Vitam in B12 panel Vitam in B12 pg/mL 211.0 911.0 288 FINAL [facility] Serum [facility].[address] [address] CLIA# [id number] 11/06 Vitam in B6 panel Vitam in B6, ng/mL ng/mL 2.1 21.7 7.1 (Note)Vit alcaraz supplemen tation within 24 hours prior to blooddraw may affect the accuracy of results.T his test was developed and its analytica l performan cecharact eristics have been determine d by [employer]. It has not been cleared or approved by theFDA. This assay has been validated pursuant to the CLIArBegun ations and is used for clinical purposes. FINAL [facility].[address] [place] [address].[facility] [address] 11/06 Vitam in B1 panel Vitam in B1, nmol/ L nmol/L 78.0 185.0 82 (Note)Vit alcaraz supplemen tation within 24 hours prior to blooddraw may affect the accuracy of the results.T his test was developed and its analytica l performan cecharact eristics have been determine d by [employer]. It has not been cleared or approved by FDA.This assay has been validated pursuant to the CLIAregul ations and is used for clinical purposes. FINAL [facility] Whole Blood-Lig ht Protected [facility].[address] [place] [address] 12.[facility] [address] 11/06 Vitam in D monit oring panel [...] of D2and D3 fractions is required, the EscapioAssu reD(TM) 25-OH VIT D, (D2,D3),L C/MS/MS is recommend ed: order code [id number] (patients >2yrs). FINAL [facility].[address] [address] 11/06 Coppe r panel Coppe r, serum mcg/dL 70.0 175.0 151 (Note)Thi s test was developed and its analytica l performan cecharact eristics have been determine d by [employer].It has not been cleared or approved by the FDA. This assayhas been validated pursuant to the CLIA regulatio ns and isused for clinical purposes. FINAL [facility].2 [address] [address] [address] [address] 11/06 Vitam in K panel Vitam in K1 pg/mL 130.0 1500.0 728 (Note)Thi s test was developed and its analytica l performan cecharact eristics have been determine d by [employer] [place]. It hasnot been cleared or approved by the U.S. Food and DrugAdmin istration . This assay has been validated pursuantt o the CLIA regulatio ns and is used for clinicalp urposes.T est Performed at:[facility] /[facility] [address] [place], [place] 8 Taqueria Early MD, PhD FINAL [facility] Plasma-Li ght Protected 11/06 Vitam in C panel Vitam in C, serum mg/dL 0.3 2.7 <0.1 Low (Note)Thi s test was developed and its analytica lperforma nce character istics have been determine dby [place].It has not been cleared or approved by the FDA. Thisassay has been validated pursuant to the CLIAregul ations and is used for clinical purposes. Test Performed at:[facility] [address] [facility] [place] , [place] 8 Taqueria Early MD, PhD FINAL [facility] Serum 11/06 Zinc panel Zinc mcg/dL 60.0 130.0 67 (Note)Thi s test was developed and its analytica l performan cecharact eristics have been determine d by [facility] .It has not been cleared or approved by the FDA. Thisassay has been validated pursuant to the CLIA regulatio nsand is used for clinical purposes. FINAL [facility] Plasma [facility].2 [address] [address] [address].[facility] [address] Medications Date Name Route Dose Frequency Instructions [...] Notes Section * HemOnc Consult {Aroldo} - [facility] [address] [place] [address] P: F: PATIENT: ISHAN PHOENIX : 1965 [...] recreational drug use., Family History: Mother ??diabetes, [place] Sister??cervical cancer Maternal grandfather?? diabetes, [place] Vital Signs: Height: None Today; Weight: None [...] have provided written materials about medicalpowers of patent prosecution attorney and directives to physicians. Impression Report [...] 15:17 CDT * Nurse Note for: 22-MAR-24 [facility] Nurse Note Print Location: Unknown Date/Time Printed: 12/13/2024 12:39 ([facility] [place]) Patient: ISHAN PHOENIX Sex: Female : 1965 [...] mg Amount in mL: 0.5 Pharmacy dispense: [facility]: [phone] Dispense/Waste: 25/0 mg Given Dose/Discard: 25/0 mg [...] mg Amount in mL: 19.5 Pharmacy dispense: [facility]: [id number] Dispense/Waste: 975/0 mg Given Dose/Discard: 975/0 mg Start Time: 10:00, Entered By: Domonique Goode RN, Stop Time: 13:45, Entered By: Domonique Goode RN [facility] Fluid: 0.9 % sodium chloride, [facility] Fluid Volume: 250mL Double Checked By: Domonique Goode RN on 03/22/2024 09:54 and Kasia Valles RN Sr on 03/22/2024 09:54 * Nurse Note for: 05-MAR-24 [facility] Nurse Note Print Location: Unknown Date/Time Printed: 12/13/2024 12:39 ([facility]) Patient: ISHAN PHOENIX Sex: Female : 1965 Date of Service: 03/05/2024 Allergies : promethazine, metformin, glimepiride, Phenergan Vital Signs : Time: 14:09, no equipment to measure. Pain Scale: 6 knees and legs, RLS. Entered by Shu Cohen VC, MA Criminal Researcher 03/05/2024 14:10 Patient Assessment : Positive results Assessment : Alert, oriented with appropriate behavior, Gait Changes-balance. Complains of Pain-6 (knees and legs, RLS), Fatigue, Other-memory. Entered By Shu Cohen VC, MA Criminal Researcher on 14:13
--- OUTSIDE RECORDS SUMMARY | 2024-12-13 12:40 | XMS_ITS | CCD ---
Author Name Interface, [id number] lity Address [place] [address] [facility] Address [place] [address] Care Team Providers Care Seed Expert Name Role Phone Andrew Moe Unavailable Unavailable Allergies and Adverse Reactions Care Plan Reason for Visit Encounters Immunizations Diagnostic Results Medications Administered Medications Problems Procedures Social History Vital Signs
--- OUTSIDE RECORDS SUMMARY | 2024-12-13 12:40 | XMS_ITS | CONTINUITY OF CARE DOCUMENT ---
Author Name tori myeshajuanjose Address Unknown Organization [facility] Address [address] [address] [place] [address] Phone [phone] Care Team Providers Care Traffic Assistant Name Role Phone John Ly MD Unavailable [phone] KAISER PHIPPS MD Unavailable KAISER PHIPPS MD Unavailable PROBLEMS Condition Status Date Provider Notes LEG OR ARM PAIN active Elizabethmaria c Desouza CHEST PAIN-TYPE TO BE DETERMINED active Jake Desouza OBESITY active John Ly MD HTN ESSENTIAL active John Ly MD ENCOUNTERS Date Type Provider Location Encounter Diag nosis - In-person encounter Office Visit John Ly MD [facility] HTN ESSENTIALOBESITY VITAL SIGNS Date Observation [...] Manpreet Molina thyroxine, serum, total 7.2 ug/dL [facility] [place]iod[place]ron[place] 28 % [facility] [place] glucose, fasting 151 mg/dL [facility] [place] creatinine, serum 0.7 mg/dL [facility] [place] urea nitrogen, blood 14 mg/dL [facility] [place] carbon dioxide, serum, total 23 mmol/L [facility] [place] chloride, serum 100 mmol/L [facility] [place] potassium, serum 3.8 mmol/L [facility] [place] sodium, serum 138 mmol/L [facility] [place] [facility], serum 9[facility]8 mg/[facility] Normal carbon dioxide, venous blood 23 mmol/L [facility] 21-33 Normal chloride, serum 100 mmol/L [facility] 98-110 Normal potassium, serum 3.8 mmol/L [facility] 3[facility]3 Normal sodium, serum 138 mmol/L [facility] [...] 1.4-3.8 Normal thyroxine, serum, total 7.2 ug/dL [facility] 4[facility]-12.5 Normal triiodothyronine resin uptake 28 % [...] Payer name Policy type / Coverage type [facility] republican ID [facility] Other [id number] TREATMENT PLAN Date Name Performer FU: H er updated medication list for this problem includes: Maxzide 75-50 Mg Tabs (Triamterene-hctz) ..... One tab. daily Triamterene-hctz 75-50 Mg Tabs (Triamterene-hctz) ..... One tab. daily Orders: B ASIC METABOLIC PANEL W/EGFR (32789) T HYROID PANEL WITH TSH, 3RD GENERATION (7444) BP today: 141/99 Ashwin Leblanc FU: O rders: E KG (CPT-16235) BP today: 141/99 Prior BP: / () [...]
== END 2024-12-13 12:16 | disposition home or self-care (01) ==
PROVIDERS: Emergency Provider Emergency Medicine
DX: M77.8 Other enthesopathies, not elsewhere classified (principal); G56.01 Carpal tunnel syndrome, right upper limb; E11.9 Type 2 diabetes mellitus without complications; I10 Essential (primary) hypertension
CPT/HCPCS: 73080; 99283